=== PATIENT | male | born 1940 | race African-American/Black ===

== ENCOUNTER 2016-07-31 14:09 | Emergency (ER) | payer MEDICARE, OTHER ==
[~2016-07-31] VITALS: Ht 185.4 cm; Wt 90.7 kg
[~2016-07-31 14:09] MED LIST: AMLO5TAB2 PO; ATOR20TA58 PO; BACL10TA PO; CILO100T PO; CLON0.1T PO; CLOP75TA PO; GABA-586 PO; LORA2TAB PO; LOSA1TAB17 PO; LOSA1TAB18 PO; MIRT30TA3 PO; MIRT45TA3 PO; OXYC-250 PO; OXYC-323 PO
--- NOTE | 2016-07-31 15:43 | EKG ---
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
--- NOTE | 2016-07-31 17:04 | RAD ---
INDICATION:bilateral leg pain COMPARISON: None. Spectral Doppler, color and grayscale ultrasound images obtained through the bilateral leg arterial system. FINDINGS: Biphasic waveform is seen in the right common femoral artery and deep femoral artery. Monophasic waveforms are seen within the right superficial femoral, popliteal and calf arteries. Monophasic waveform is seen within the left common femoral, superficial femoral, popliteal and calf arteries. Elevated velocity in the left superficial femoral artery to 400 cm/S. IMPRESSION: Monophasic waveforms are seen throughout a large portion of the bilateral leg arterial vasculature which is suggestive of regions of stenosis with distal regions of altered flow. In addition there is an elevated velocity in the left superficial femoral artery concerning for a site of stenosis.
[2016-07-31 17:10] LABS: BASO # 0.1 x10^3/uL (0.0-0.2); BASO % 1 % (0-3); EOS % 1 % (0-3); HEMOGLOBIN 12.2 g/dL (13.0-17.5); LYMPH # 1.3 x10^3/uL (1.0-4.8); LYMPH % 17 % (24-48); MEAN CORPUSCULAR HEMOGLOBIN 28 pg (25-35); MEAN CORPUSCULAR HGB CONC 32 g/dL (31-37); MEAN CORPUSCULAR VOLUME 88 fL (79-100); MONO % 12 % (0-9); NEUT % 69 % (31-73); PLATELET COUNT 235 x10^3/uL (140-400); RED BLOOD COUNT 4.33 x10^6/uL (4.30-5.70); RED CELL DISTRIBUTION WIDTH 14.6 % (11.5-14.5); WHITE BLOOD COUNT 7.7 x10^3/uL (4.0-11.0)
[2016-07-31 17:20] LABS: CALCIUM 9.8 mg/dL (8.5-10.1); CREATININE 1.1 mg/dL (0.7-1.3); POTASSIUM 4.2 mmol/L (3.5-5.1)
[2016-07-31] MEDS ORDERED: HYDR-2666 PO (17:34)
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
[2016-07-31 18:00] VITALS: BP 191/86
[2016-07-31] MEDS ORDERED: HYDR25TA PO (18:20)
== END 2016-07-31 18:34 | disposition home or self-care (01) ==
LOC: ER 14:09
DX: I73.9 Peripheral vascular disease, unspecified (principal); G89.29 Other chronic pain; M54.9 Dorsalgia, unspecified; F41.9 Anxiety disorder, unspecified; E78.00 Pure hypercholesterolemia, unspecified; I11.9 Hypertensive heart disease without heart failure; G62.9 Polyneuropathy, unspecified; Z90.49 Acquired absence of other specified parts of digestive tract
CPT/HCPCS: 36415; 71010; 80048; 83880; 85027; 93005; 93925; 99285-25

== ENCOUNTER 2016-10-25 18:38 | Emergency (ER) | payer OTHER ==
[~2016-10-25] VITALS: Ht 185.4 cm; Wt 99.8 kg
[~2016-10-25 18:38] MED LIST changes: +HYDR-2666 PO; +HYDR25TA PO
[2016-10-25] MEDS ORDERED: CYCLOBENZAPRINE 10 MG TABLET. PO ONE (19:00)
[2016-10-25] MEDS ORDERED: MORPHINE IR 15 MG TABLET PO ONE (19:00)
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
[2016-10-25 20:09] VITALS: BP 127/61
--- NOTE | 2016-10-26 09:42 | RAD ---
Exam performed: Single view pelvis and 2 views right hip. History: Chronic atraumatic Right hip pain. Date of service: 10/25/16. Comparison: Single view pelvis from 06/11/10. Findings: AP view of the pelvis as well as AP and frog leg lateral view of the right hip are obtained. Mild joint space narrowing involving the right hip joint is seen. Bilateral sacroiliac joints are preserved. There are postoperative changes of open reduction internal fixation about the left hip with intact hardware. Extensive callus formation is seen. There is no acute fracture or dislocation. Nonspecific bowel gas pattern. Mild spondylitic changes. Impression: Early degenerative changes involving the right hip joint. Old healed left intertrochanteric fracture with intact hardware. Spondylotic changes
== END 2016-10-25 20:27 | disposition home or self-care (01) ==
LOC: ER 18:38
DX: M25.551 Pain in right hip (principal); F41.9 Anxiety disorder, unspecified; E78.00 Pure hypercholesterolemia, unspecified; I11.9 Hypertensive heart disease without heart failure; G89.29 Other chronic pain; G62.9 Polyneuropathy, unspecified
CPT/HCPCS: 73502; 99284

== ENCOUNTER 2017-09-02 13:07 | Emergency (ER) | payer OTHER | END 2017-09-02 13:56 | disposition home or self-care (01) | LOC: ER 13:56 | DX: G62.9 Polyneuropathy, unspecified (principal); E78.00 Pure hypercholesterolemia, unspecified; G89.29 Other chronic pain; I11.9 Hypertensive heart disease without heart failure; Z90.49 Acquired absence of other specified parts of digestive tract | CPT/HCPCS: 99284 ==

== ENCOUNTER 2017-10-02 11:30 | Emergency (ER) | payer OTHER ==
[2017-10-02] MEDS: oxyCODONE/APAP 5/325 1 TAB TABLET PO (12:53)
== END 2017-10-02 14:14 | disposition home or self-care (01) ==
LOC: ER 11:30
DX: S70.02XA Contusion of left hip, initial encounter (principal); I10 Essential (primary) hypertension; F41.9 Anxiety disorder, unspecified; G89.29 Other chronic pain; F32.9 Major depressive disorder, single episode, unspecified; Z90.49 Acquired absence of other specified parts of digestive tract; X58.XXXA Exposure to other specified factors, initial encounter; Y93.01 Activity, walking, marching and hiking; Y92.89 Other specified places as the place of occurrence of the external cause; Y99.8 Other external cause status
CPT/HCPCS: 73502; 99284

== ENCOUNTER → 2018-03-21 | Outpatient (CLI) | payer OTHER ==
[2017-10-02 12:08] VITALS: BP 147/70
[~2018-03-21] MED LIST changes: -AMLO5TAB2 PO; +AMLO5TAB7 PO; +CONTRAST GIVEN. MC PRN; -HYDR-2666 PO; +HYDR-2758 PO; +IOHEXOL 300 MG/ML 100ML VIAL. IV ONE; -LOSA1TAB17 PO; -LOSA1TAB18 PO; +LOSA1TAB22 PO; +LOSA1TAB25 PO; -MIRT45TA3 PO; +MIRT45TA58 PO; -OXYC-250 PO; +OXYC-328 PO
--- NOTE | 2018-03-21 15:48 | RAD ---
CT angiography of the abdomen, pelvis, and bilateral lower extremities. 03/21/2018. INDICATION: Peripheral vascular disease. Bilateral lower extremity pain. TECHNIQUE: Multidetector CT imaging of the abdomen, pelvis, and bilateral lower extremities was performed following the administration of IV contrast. A reduced contrast dose was used. 3-D reconstructions of abdominal, pelvic, and lower extremity vasculature were created on an independent workstation and reviewed. COMPARISON STUDY: None available. Discussion: Vascular findings The inferior thoracic aorta demonstrates circumferential atherosclerotic vascular disease without flowing stenosis or aneurysm. The abdominal aorta demonstrates mild circumferential narrowing distally secondary to atherosclerotic vascular calcification. Celiac artery is patent. Superior mesenteric artery is patent. There is moderate narrowing approximately 50 percent involving the proximal right renal artery. Both kidneys demonstrate some atrophic change, right greater than left. The inferior mesenteric artery appears grossly patent. The origin is somewhat obscured by sclerotic vascular calcification. There is short segment approximately 70-80 percent stenosis of the proximal right common iliac artery. A significant component of soft plaque is seen. And the right external iliac artery is patent. There is 50 percent narrowing of the right common femoral artery with dense calcification. There is near occlusion at the origin of the right superficial femoral artery. Profunda artery is patent. There is occlusion of the right SFA in the mid thigh. Some distal reconstitution is present via geniculate collaterals. The popliteal artery demonstrates multiple focal high-grade stenoses above the knee. Below the knee popliteal artery is grossly patent. Anterior tibial artery, tibioperoneal trunk, posterior tibial artery, peroneal artery are patent. Dorsalis pedis artery is patent to the mid foot. Lateral plantar artery is poorly evaluated appears to be grossly patent. Left common iliac artery is patent. Left internal iliac artery demonstrates high-grade densely calcified stenosis proximally. Left external iliac artery is patent. Left common femoral artery is 50 percent narrowed secondary to dense calcific plaque. High-grade stenosis of the proximal left SFA is seen. Multifocal tandem stenoses are seen throughout the left SFA. There is a short segment stent in the mid left SFA. Mild in-stent stenosis is seen proximally. Distal aspect of the stent remains patent. A second stent is seen more distally which is occluded proximally. There is some reconstitution of the [id number]-[id number] popliteal artery. The above-knee popliteal artery is densely calcified demonstrating near occlusive stenoses. The satuv-cye-gafd popliteal artery appears grossly patent. Calcification is seen within the proximal anterior tibial artery. Likely represents mild stenoses. Calcification the peroneal artery is seen probably representing at least moderate stenoses. The posterior tibial artery is patent to the foot. Nonvascular findings: The lung bases demonstrate no acute abnormality. Prior cholecystectomy noted. Liver is unremarkable. Spleen is grossly unremarkable. The adrenal glands are grossly unremarkable. Multilobulated kidneys are noted. Multiple renal cysts are noted bilaterally. Pancreas is atrophic but otherwise grossly unremarkable. Small hiatal hernia appears to be present. There is no bowel obstruction. Evaluation of bowel is limited without oral contrast. Descending and sigmoid colonic diverticulosis is noted. Prior appendectomy. She be present. Diffusion of lumbar vertebral bodies is noted. Degenerative changes of the spine are seen. Postsurgical changes following ORIF of the left hip noted. An acute osseous abnormality is not identified. IMPRESSION: 1. 70-80 %stenosis of the right common iliac artery 2. 50 % stenosis of the right common femoral artery 3. Diffuse vascular disease involving right FSA at SFA as described above including occlusion of the right SFA in the mid thigh. 4. Multiple high-grade stenoses of the right popliteal artery above the knee 5. High-grade stenoses of the bilateral internal iliac arteries 6. Multiple high-grade stenoses involving left superficial femoral artery. In-stent stenosis within the proximal left SFA stent. Occlusion of the more distal left SFA stent. 7. Near occlusive stenosis within the left [id number]-oaf-gtmf popliteal artery 8. Probable moderate stenoses within the left anterior tibial artery and peroneal artery. 9. Chronic abdominal findings as described above CT DOSING PQRS STATEMENT: One or more of the following individualized dose reduction techniques were utilized for this examination: 1. Automated exposure control 2. Adjustment of the mA and/or kV according to patient size 3. Use of iterative reconstruction technique Electronically signed by: Austen Wallace MD (03/21/2018 3:44 PM) [id number]
== END | disposition home or self-care (01) ==
LOC: CT 12:11
PROVIDERS: ATTEND Internal Medicine Cardiovascular Disease
DX: I70.293 Other atherosclerosis of native arteries of extremities, bilateral legs (principal); K57.30 Diverticulosis of large intestine without perforation or abscess without bleeding; N28.1 Cyst of kidney, acquired; I70.0 Atherosclerosis of aorta; Z90.49 Acquired absence of other specified parts of digestive tract
CPT/HCPCS: 73706; Q9967

== ENCOUNTER 2018-05-30 12:55 | Emergency (ER) | payer OTHER ==
[~2018-05-30] VITALS: Ht 185.4 cm; Wt 90.7 kg
[~2018-05-30 12:55] MED LIST changes: +CARI350T14 PO; +CARV3.1210 PO; -CONTRAST GIVEN. MC PRN; -GABA-586 PO; +GABA300C18 PO; -HYDR-2758 PO; +HYDR-2761 PO; -IOHEXOL 300 MG/ML 100ML VIAL. IV ONE; -OXYC-323 PO; -OXYC-328 PO; +OXYC1TAB15 PO; +OXYC1TAB22 PO
[2018-05-30 14:17] VITALS: BP 163/76
[2018-05-30 14:26] LABS: CREATININE ISTAT 1.1 mg/dL (0.5-1.4); HEMOGLOBIN ISTAT 12.2 g/dL (14-18); ION CA ISTAT 1.25 mmol/L (1.13-1.32); POTASSIUM ISTAT 4.1 mmol/L (3.5-5.0)
[2018-05-30 14:28] LABS: BASO # 0.1 x10^3/uL (0.0-0.2); BASO % 1 % (0-3); EOS # 0.2 x10^3/uL (0.0-0.7); EOS % 3 % (0-3); HEMATOCRIT 35.7 % (39.0-53.0); HEMOGLOBIN 12.1 g/dL (13.0-17.5); LYMPH % 18 % (24-48); MEAN CORPUSCULAR HEMOGLOBIN 30 pg (25-35); MEAN CORPUSCULAR HGB CONC 34 g/dL (31-37); MEAN CORPUSCULAR VOLUME 88 fL (79-100); MONO # 0.7 x10^3/uL (0.0-1.1); MONO % 12 % (0-9); NEUT # 3.7 x10^3uL (1.8-7.7); NEUT % 66 % (31-73); PLATELET COUNT 253 x10^3/uL (140-400); RED BLOOD COUNT 4.07 x10^6/uL (4.30-5.70); RED CELL DISTRIBUTION WIDTH 14.7 % (11.5-14.5); WHITE BLOOD COUNT 5.6 x10^3/uL (4.0-11.0)
[2018-05-30] MEDS ORDERED: HYDROcodone/APAP 5/325MG 1 TAB TABLET PO ONE (14:30)
[2018-05-30] MEDS ORDERED: IOHEXOL 300 MG/ML 100ML VIAL. IV ONE (14:30)
[2018-05-30 14:38] LABS: PROTHROMBIN TIME PATIENT 12.6 SEC (11.7-14.0)
[2018-05-30 14:39] LABS: CALCIUM 9.5 mg/dL (8.5-10.1); CREATININE 1.2 mg/dL (0.7-1.3); GFR 71.2; POTASSIUM 4.1 mmol/L (3.5-5.1)
[2018-05-30] MEDS ORDERED: HYDR-3164 PO (14:40)
[2018-05-30 14:44] LABS: ALBUMIN 3.5 g/dL (3.4-5.0); ALBUMIN/GLOBULIN RATIO 0.7 (1.0-1.7); TOTAL BILIRUBIN 0.3 mg/dL (0.2-1.0); TOTAL PROTEIN 8.4 g/dL (6.4-8.2)
--- NOTE | 2018-05-30 15:26 | PHYS DOC ---
Past Medical History Past Medical History: Anxiety, Depression, Hypertension Additional Past Medical Histor: chronic back pain, NEUROPATHY Past Surgical History: Cholecystectomy, Other Additional Past Surgical Histo: STENT PLACED IN LEG, BACK SX, LEFT HIP SX Alcohol Use: None Drug Use: None Adult General Chief Complaint Chief Complaint: LOWER EXT PAIN HPI HPI Patient is a 77 year old male who presents with chief complaint of right buttock pain apparently he has an abnormal height bed he has been having some discomfort when he gets in and out of bed he has been using a water pill and urinating more and so he is getting up and out of bed to the commode more he thinks he pinched something in his buttock. He says his lower legs feel fine he is not having any of the symptoms that he was having just prior to his lower extremity angiogram. He says that he has baseline numbness in both legs that is actually much better his feet don't hurt him really at this time. He is taking oral oral pain medication at home. Review of Systems Review of Systems Constitutional: Denies fever or chills [] HENT: Denies nasal congestion or sore throat [] Cardiovascular: No additional information not addressed in HPI [] GI: Denies abdominal pain, nausea, vomiting, bloody stools or diarrhea [] : Denies dysuria or hematuria [] Neurologic: Denies headache, All other systems were reviewed and found to be within normal limits, except as documented in this note. Current Medications Current Medications Current Medications Medications (Trade) Dose Ordered Sig/Kimberly Start Time Stop Time Status Last Admin Dose Admin Acetaminophen/ Hydrocodone Bitart (Lortab 5/325) 2 tab 1X ONCE 05/30/18 14:30 05/30/18 14:31 DC Iohexol (Omnipaque 300 Mg/ml) 95 ml 1X ONCE 05/30/18 14:30 05/30/18 14:34 DC Allergies Allergies Allergies Coded Allergies Type Severity Reaction Last Updated Verified No Known Drug Allergies 01/14/15 No Physical Exam Physical Exam Constitutional: Well developed, well nourished, no acute distress, non-toxic appearance. [] HENT: Normocephalic, atraumatic, bilateral external ears normal, oropharynx moist, no oral exudates, nose normal. [] Eyes: PERRLA, EOMI, conjunctiva normal, no discharge. [] Neck: Normal range of motion, no tenderness, supple, no stridor. [] Cardiovascular:Heart rate regular rhythm, no murmur [] Lungs & Thorax: Bilateral breath sounds clear to auscultation [] Abdomen: Bowel sounds normal, soft, no tenderness, no masses, no pulsatile masses. [] Skin: Warm, dry, no erythema, no rash. [] Back: mild right buttock ttp noted. no rash. femoral pulse intact[] Extremities patient has biphasic posterior tibial pulses dopplerable bilaterally he has monophasic dorsalis pedis pulses bilaterally as well. He has slightly decreased sensation to light touch brisk capillary refill is intact his calves are nontender he has mild tenderness over his right buttock otherwise strength is intact. Neurologic: Alert and oriented X 3, normal motor function, normal sensory function, no focal deficits noted. [] Psychologic: Affect normal, judgement normal, mood normal. [] Current Patient Data Vital Signs Vital Signs Date Time Temp Pulse Resp B/P (MAP) Pulse Ox O2 Delivery O2 Flow Rate FiO2 05/30/18 14:17 86 20 163/76 (105) 95 Room Air 05/30/18 13:11 97.7 97.7 Lab Values Laboratory Tests Test 05/30/18 14:20 05/30/18 14:21 White Blood Count 5.6 x10^3/uL (4.0-11.0) Red Blood Count 4.07 x10^6/uL (4.30-5.70) L Hemoglobin 12.1 g/dL (13.0-17.5) L Hematocrit 35.7 % (39.0-53.0) L Mean Corpuscular Volume 88 fL (79-100) Mean Corpuscular Hemoglobin 30 pg (25-35) Mean Corpuscular Hemoglobin Concent 34 g/dL (31-37) Red Cell Distribution Width 14.7 % (11.5-14.5) H Platelet Count 253 x10^3/uL (140-400) Neutrophils (%) (Auto) 66 % (31-73) Lymphocytes (%) (Auto) 18 % (24-48) L Monocytes (%) (Auto) 12 % (0-9) H Eosinophils (%) (Auto) 3 % (0-3) Basophils (%) (Auto) 1 % (0-3) Neutrophils # (Auto) 3.7 x10^3uL (1.8-7.7) Lymphocytes # (Auto) 1.0 x10^3/uL (1.0-4.8) Monocytes # (Auto) 0.7 x10^3/uL (0.0-1.1) Eosinophils # (Auto) 0.2 x10^3/uL (0.0-0.7) Basophils # (Auto) 0.1 x10^3/uL (0.0-0.2) Prothrombin Time 12.6 SEC (11.7-14.0) Prothrombin Time INR 1.0 (0.8-1.1) Sodium Level 139 mmol/L (136-145) Potassium Level 4.1 mmol/L (3.5-5.1) Chloride Level 104 mmol/L (98-107) Carbon Dioxide Level 27 mmol/L (21-32) Anion Gap 8 (6-14) 17 mmol/L (6-14) H Blood Urea Nitrogen 32 mg/dL (8-26) H Creatinine 1.2 mg/dL (0.7-1.3) Estimated GFR (Cockcroft-Gault) 71.2 BUN/Creatinine Ratio 27 (6-20) H Glucose Level 120 mg/dL (70-99) H 117 mg/dL (70-99) H Calcium Level 9.5 mg/dL (8.5-10.1) Total Bilirubin 0.3 mg/dL (0.2-1.0) Aspartate Amino Transferase (AST) 27 U/L (15-37) Alanine Aminotransferase (ALT) 27 U/L (16-63) Alkaline Phosphatase 101 U/L (46-116) Total Protein 8.4 g/dL (6.4-8.2) H Albumin 3.5 g/dL (3.4-5.0) Albumin/Globulin Ratio 0.7 (1.0-1.7) L POC Hemoglobin 12.2 g/dL (14-18) L POC Hematocrit 36 % (37-52) L POC Sodium 141 mmol/L (135-145) POC Potassium 4.1 mmol/L (3.5-5.0) POC Chloride 105 mmol/L (98-110) POC Total CO2 25 mmol/L (23-32) POC Blood Urea Nitrogen 30 mg/dL (8-26) H POC Creatinine 1.1 mg/dL (0.5-1.4) POC Ionized Calcium (Buck) 1.25 mmol/L (1.13-1.32) Laboratory Tests 05/30/18 14:20 Laboratory Tests 05/30/18 14:20 05/30/18 14:21 EKG EKG [] Radiology/Procedures Radiology/Procedures [] Course & Med Decision Making Course & Med Decision Making Pertinent Labs and Imaging studies reviewed. (See chart for details) []77-year-old male with history of complex peripheral vascular disease status post a stent placement to the common iliac on the right as well as angioplasty to a previous stent of the superficial femoral artery on the left a few weeks back who is now presenting with right buttock pain it is reproducible on examination strongly suggestive of sciatica. I did speak with Dr. pichardo who initially over the telephone and thought that a CT angiogram would be reasonable. However he then came to see the patient which is very very much appreciated he evaluated the patient in detail he actually feels like I initially felt that this was very much a sciatic reproducible muscular type of pain we both decided to cancel the CT angiogram I think that is very reasonable. Patient was recommended to continue his oral narcotic pain medication rest ice gradual return to activity and follow-up routinely for his routine care. Patient was advised to follow-up for his blood pressure within 1 month he notes understanding. Anthony Disclaimer Anthony Disclaimer This electronic medical record was generated, in whole or in part, using a voice recognition dictation system. Departure Departure Impression: Primary Impression: Sciatica Additional Impression: Elevated blood pressure reading Disposition: HOME, SELF-CARE Condition: STABLE Patient Instructions: Sciatica, [id number] Scripts Hydrocodone/Apap 5-325 (NORCO 5-325 TABLET) 1 Each Tablet 1-2 EACH PO PRN Q6HRS PRN for PAIN, #15 as needed for pain Prov: FER TRUONG MD 05/30/18 Problem Qualifiers FER TRUONG MD May 30, 2018 15:26
== END 2018-05-30 14:51 | disposition home or self-care (01) ==
LOC: ER 12:55
DX: M54.41 Lumbago with sciatica, right side (principal); I10 Essential (primary) hypertension; R20.0 Anesthesia of skin; G89.29 Other chronic pain; Z90.49 Acquired absence of other specified parts of digestive tract; Z98.890 Other specified postprocedural states
CPT/HCPCS: 36415; 80047; 80053; 85025; 85610; 99284

== ENCOUNTER 2019-07-25 16:52 | Emergency (ER) | payer MEDICARE, OTHER ==
[~2019-07-25] VITALS: Ht 185.4 cm; Wt 100.0 kg
[~2019-07-25 16:52] MED LIST changes: +AMLO5TAB10 PO; -AMLO5TAB7 PO; +HYDR-3164 PO
--- NOTE | 2019-07-25 18:23 | PHYS DOC ---
Past Medical History Past Medical History: Anxiety, Depression, Hypertension Additional Past Medical Histor: chronic back pain, NEUROPATHY Past Surgical History: Cholecystectomy, Other Additional Past Surgical Histo: STENT PLACED IN LEG, BACK SX, LEFT HIP SX Smoking Status: Former Smoker Alcohol Use: None Drug Use: None Adult General Chief Complaint Chief Complaint: DIZZY/LIGHT HEADED [facility] HPI 79-year-old male with underlying history of hypertension, back pain, muscle spasm presents to the emergency Department complaints of dizziness. Patient was prescribed tizanidine 4 mg 1 by mouth twice a day, he picked up the prescription today ingested 1 tablet her approximate 2 PM. Patient states around 3 he became dizzy and lightheaded. Patient denies any chest pain, shortness breath, nausea, vomiting. Nothing makes his symptoms worse, nothing makes his symptoms better. Review of Systems Review of Systems Constitutional: Denies fever or chills [] Respiratory: Denies cough or shortness of breath [] Cardiovascular: No additional information not addressed in HPI [] GI: Denies abdominal pain, nausea, vomiting, bloody stools or diarrhea [] Musculoskeletal: back pain Neurologic: Denies headache, focal weakness or sensory changes, + dizziness [] All other systems were reviewed and found to be within normal limits, except as documented in this note. Current Medications Current Medications Current Medications Medications (Trade) Dose Ordered Sig/Kimberly Start Time Stop Time Status Last Admin Dose Admin Sodium Chloride 1,000 ml @ 1,000 mls/hr 1X ONCE 07/25/19 18:30 07/25/19 19:29 07/25/19 18:43 1,000 MLS/HR Allergies Allergies Allergies Coded Allergies Type Severity Reaction Last Updated Verified No Known Drug Allergies 01/14/15 No Physical Exam Physical Exam Constitutional: Well developed, well nourished, no acute distress, non-toxic appearance. [] HENT: Normocephalic, atraumatic, bilateral external ears normal, oropharynx moist, no oral exudates, nose normal. [] Eyes: PERRLA, EOMI, conjunctiva normal, no discharge. [] Cardiovascular:Heart rate regular rhythm, no murmur [] Lungs & Thorax: Bilateral breath sounds clear to auscultation [] Abdomen: Bowel sounds normal, soft, no tenderness, no masses, no pulsatile masses. [] Skin: Warm, dry, no erythema, no rash. [] Back: No tenderness, no CVA tenderness. [] Extremities: No tenderness, no edema. [] Neurologic: Alert and oriented X 3, no focal deficits noted. [] Psychologic: Affect normal, judgement normal, mood normal. [] Current Patient Data Vital Signs Vital Signs Date Time Temp Pulse Resp B/P (MAP) Pulse Ox O2 Delivery O2 Flow Rate FiO2 07/25/19 18:23 97.5 63 20 163/70 (101) 97 Room Air 97.5 Lab Values Laboratory Tests Test 07/25/19 18:17 White Blood Count 6.1 x10^3/uL (4.0-11.0) Red Blood Count 4.11 x10^6/uL (4.30-5.70) L Hemoglobin 11.7 g/dL (13.0-17.5) L Hematocrit 36.1 % (39.0-53.0) L Mean Corpuscular Volume 88 fL (79-100) Mean Corpuscular Hemoglobin 29 pg (25-35) Mean Corpuscular Hemoglobin Concent 33 g/dL (31-37) Red Cell Distribution Width 14.3 % (11.5-14.5) Platelet Count 232 x10^3/uL (140-400) Neutrophils (%) (Auto) 66 % (31-73) Lymphocytes (%) (Auto) 19 % (24-48) L Monocytes (%) (Auto) 12 % (0-9) H Eosinophils (%) (Auto) 3 % (0-3) Basophils (%) (Auto) 1 % (0-3) Neutrophils # (Auto) 4.0 x10^3/uL (1.8-7.7) Lymphocytes # (Auto) 1.1 x10^3/uL (1.0-4.8) Monocytes # (Auto) 0.7 x10^3/uL (0.0-1.1) Eosinophils # (Auto) 0.2 x10^3/uL (0.0-0.7) Basophils # (Auto) 0.0 x10^3/uL (0.0-0.2) Sodium Level 139 mmol/L (136-145) Potassium Level 4.1 mmol/L (3.5-5.1) Chloride Level 103 mmol/L (98-107) Carbon Dioxide Level 24 mmol/L (21-32) Anion Gap 12 (6-14) Blood Urea Nitrogen 20 mg/dL (8-26) Creatinine 1.5 mg/dL (0.7-1.3) H Estimated GFR (Cockcroft-Gault) 54.8 BUN/Creatinine Ratio 13 (6-20) Glucose Level 88 mg/dL (70-99) Calcium Level 8.3 mg/dL (8.5-10.1) L Total Bilirubin 0.2 mg/dL (0.2-1.0) Aspartate Amino Transferase (AST) 24 U/L (15-37) Alanine Aminotransferase (ALT) 24 U/L (16-63) Alkaline Phosphatase 107 U/L (46-116) Total Protein 7.3 g/dL (6.4-8.2) Albumin 3.1 g/dL (3.4-5.0) L Albumin/Globulin Ratio 0.7 (1.0-1.7) L Laboratory Tests 07/25/19 18:17 Laboratory Tests 07/25/19 18:17 EKG EKG EKG reviewed, interpretation time 1810, heart rate 59, left axis deviation, no STEMI[] Radiology/Procedures Radiology/Procedures [] Course & Med Decision Making Course & Med Decision Making Pertinent Labs and Imaging studies reviewed. (See chart for details) []79-year-old male with underlying history of hypertension, back pain, muscle spasm presents to the emergency Department complaints of dizziness. Patient was prescribed tizanidine 4 mg 1 by mouth twice a day, he picked up the prescription today ingested 1 tablet her approximate 2 PM. Patient states around 3 he became dizzy and lightheaded. Patient denies any chest pain, shortness breath, nausea, vomiting. Nothing makes his symptoms worse, nothing makes his symptoms better. Labs reviewed. Symptoms likely secondary to tizanidine, medication starts to work within one to 2 hours can last up to 6-8 hours Discussed results with patient/family Recommend taking the medication at night, would not take during the day given his symptoms- would be cautious getting up at night Return precautions provided Recommend dc home and follow up as outpatient with PCP No CT performed given the onset of symptoms 1 hour after ingestion which is consistent with medication side effect Dragon Disclaimer Dragon Disclaimer This electronic medical record was generated, in whole or in part, using a voice recognition dictation system. Departure Departure Impression: Primary Impression: Medication side effect Additional Impression: Dizziness Disposition: 01 HOME, SELF-CARE Condition: IMPROVED Referrals: MELVIN DEL VALLE MD (PCP) Patient Instructions: Dizziness, [id number] Additional Instructions: Symptoms likely secondary to tizanidine, medication starts to work within one to 2 hours can last up to 6-8 hours Recommend taking the medication at night, would not take during the day given his symptoms- would be cautious getting up at night Recommend follow up with PCP 3 - 5 days Return to the ER with worsening symptoms, intractable pain, fever, altered mental status Problem Qualifiers CONNOR TOLEDO MD Jul 25, 2019 18:23
[2019-07-25] MEDS ORDERED: IV NORMAL SALINE 1000ML BAG 1,000 ML IV ONE (18:30)
[2019-07-25 18:49] LABS: BASO % 1 % (0-3); EOS # 0.2 x10^3/uL (0.0-0.7); EOS % 3 % (0-3); HEMATOCRIT 36.1 % (39.0-53.0); HEMOGLOBIN 11.7 g/dL (13.0-17.5); LYMPH # 1.1 x10^3/uL (1.0-4.8); LYMPH % 19 % (24-48); MEAN CORPUSCULAR HEMOGLOBIN 29 pg (25-35); MEAN CORPUSCULAR HGB CONC 33 g/dL (31-37); MEAN CORPUSCULAR VOLUME 88 fL (79-100); MONO # 0.7 x10^3/uL (0.0-1.1); MONO % 12 % (0-9); NEUT % 66 % (31-73); PLATELET COUNT 232 x10^3/uL (140-400); RED BLOOD COUNT 4.11 x10^6/uL (4.30-5.70); RED CELL DISTRIBUTION WIDTH 14.3 % (11.5-14.5); WHITE BLOOD COUNT 6.1 x10^3/uL (4.0-11.0)
[2019-07-25 18:59] LABS: CALCIUM 8.3 mg/dL (8.5-10.1); CREATININE 1.5 mg/dL (0.7-1.3); GFR 54.8; POTASSIUM 4.1 mmol/L (3.5-5.1)
[2019-07-25 19:04] LABS: ALBUMIN 3.1 g/dL (3.4-5.0); ALBUMIN/GLOBULIN RATIO 0.7 (1.0-1.7); TOTAL BILIRUBIN 0.2 mg/dL (0.2-1.0); TOTAL PROTEIN 7.3 g/dL (6.4-8.2)
[2019-07-25 19:44] VITALS: BP 158/84
--- NOTE | 2019-07-28 07:03 | EKG ---
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
== END 2019-07-25 19:45 | disposition home or self-care (01) ==
LOC: ER 16:52
DX: R42 Dizziness and giddiness (principal); T50.905A Adverse effect of unspecified drugs, medicaments and biological substances, initial encounter; F41.9 Anxiety disorder, unspecified; F32.9 Major depressive disorder, single episode, unspecified; I10 Essential (primary) hypertension; G89.29 Other chronic pain; G62.9 Polyneuropathy, unspecified; F17.200 Nicotine dependence, unspecified, uncomplicated; Z98.890 Other specified postprocedural states; Y92.89 Other specified places as the place of occurrence of the external cause
CPT/HCPCS: 36415; 80053; 85025; 93005; 96360; 99285; J7030

== ENCOUNTER 2020-01-11 15:16 | Emergency (ER) | payer MEDICARE ==
[~2020-01-11] VITALS: Ht 182.9 cm; Wt 90.9 kg
[2020-01-11 15:45] VITALS: BP 185/98
--- NOTE | 2020-01-11 16:33 | PHYS DOC ---
Past Medical History Past Medical History: Anxiety, Depression, Hypertension Additional Past Medical Histor: chronic back pain, NEUROPATHY Past Surgical History: Cholecystectomy, Other Additional Past Surgical Histo: STENT PLACED IN LEG, BACK SX, LEFT HIP SX Smoking Status: Former Smoker Alcohol Use: None Drug Use: None General Adult EDM: Chief Complaint: OTHER COMPLAINTS HPI: HPI: Patient is a 79 year old male who presents with chief complaint of loneliness. Patient states that he lost his several years ago, has not in good relation ship with other parts of his family, states that he has lost many of his friends to because of age, states that he feels lonely and has a hard time sleeping at night. Patient denies fever or chills, or visual changes, any nasal congestion, cough, shortness of breath. Patient denies chest pain or peripheral swelling. Patient denies any abdominal pain nausea vomiting diarrhea. Patient denies any problems urinating, any back pains or pain in his joints above and beyond his chronic illnesses being treated by his family physician. Patient denies any skin rashes, headaches, focal weaknesses or sensory changes. Patient denies any swollen glands. Patient does not deny feelings of depression, although he states that he is just lonely, denies anxiety, denies suicidal or homicidal ideation. Patient denies any COVID-19 concerns. Review of Systems: Review of Systems: Constitutional: Denies fever or chills. Eyes: Denies change in visual acuity. HENT: Denies nasal congestion or sore throat. Respiratory: Denies cough or shortness of breath. Cardiovascular: Denies chest pain or edema. GI: Denies abdominal pain, nausea, vomiting, bloody stools or diarrhea. : Denies dysuria. Musculoskeletal: Denies back pain or joint pain. Integument: Denies rash. Neurologic: Denies headache, focal weakness or sensory changes. Lymphatic: Denies swollen glands. Psychiatric: Denies depression or anxiety. Denies homicidal or suicidal ideation. Patient states he is lonely although does not associate this loneliness with depression. Heart Score: Risk Factors: Risk Factors: DM, Current or recent (<one month) smoker, HTN, HLP, family history of CAD, obesity. Risk Scores: Score 0 - 3: 2.5% MACE over next 6 weeks - Discharge Home Score 4 - 6: 20.3% MACE over next 6 weeks - Admit for Clinical Observation Score 7 - 10: 72.7% MACE over next 6 weeks - Early Invasive Strategies Allergies: Allergies: Allergies Coded Allergies Type Severity Reaction Last Updated Verified No Known Drug Allergies 01/14/15 No Physical Exam: PE: Constitutional: Well developed, well nourished, no acute distress, non-toxic appearance. HENT: Normocephalic, atraumatic, bilateral external ears normal, oropharynx moist, no oral exudates, nose normal. Eyes: PERRLA, EOMI, conjunctiva normal, no discharge. Neck: Normal range of motion, no tenderness, supple, no stridor. Cardiovascular:Heart rate regular rhythm, no murmur Lungs & Thorax: Bilateral breath sounds clear to auscultation Abdomen: Bowel sounds normal, soft, no tenderness, no masses, no pulsatile m asses. Skin: Warm, dry, no erythema, no rash. Back: No tenderness, no CVA tenderness. Extremities: No tenderness, no cyanosis, no clubbing, ROM intact, no edema. Neurologic: Alert and oriented X 3, normal motor function, normal sensory function, no focal deficits noted. Psychologic: Affect normal, judgement normal, mood normal. Current Patient Data: Vital Signs: Vital Signs Date Time Temp Pulse Resp B/P (MAP) Pulse Ox O2 Delivery O2 Flow Rate FiO2 01/11/20 15:45 98.4 87 18 185/98 (127) 96 Room Air 98.4 EKG: EKG: [] Radiology/Procedures: Radiology/Procedures: [] Course & Med Decision Making: Course & Med Decision Making Pertinent Labs and Imaging studies reviewed. (See chart for details) 79-year-old male presents to the emergency department with complaints of loneliness. Patient states he has lost his and since then he has lost his relationship with his other family members. Patient states that he lives by himself, owns no pets. Patient states that most of his friends have from old age and other health problems. Patient states he is not depressed, but just feels very lonely. Patient does not complain of any physical complaints that are beyond what he is being treated for by his primary care physician. Patient does have a female friend that was sitting in the room during examination. Patient states that when they are together everything is fine he has no prob lems, but when she goes home or has to take care of her daughter, the symptoms of loneliness return. Discussed with patient that he needs to see his primary care physician soon to manage his depression medications. Patient was agreeable to this plan. Patient was not homicidal or suicidal. Patient was given specific instructions to follow-up with his doctor soon, no prescriptions for home were given. Patient was given return to ER precautions and concerns. Patient had no further questions or concerns and was discharged home. Dragon Disclaimer: Dragon Disclaimer: This electronic medical record was generated, in whole or in part, using a voice recognition dictation system. Departure Departure Impression: Primary Impression: Loneliness Disposition: HOME, SELF-CARE Condition: GOOD Referrals: MELVIN DEL VALLE MD (PCP) Additional Instructions: Please follow-up with your Dr. Mendez this week. Return to the emergency department for any worsening symptoms or concerns. Justicifation of Admission Dx: Justifications for Admission: Justification of Admission Dx: N/A TANO MCCARTHY APRN Jan 11, 2020 16:33
== END 2020-01-11 16:53 | disposition home or self-care (01) ==
LOC: ER 15:16
DX: R45.89 Other symptoms and signs involving emotional state (principal); F41.9 Anxiety disorder, unspecified; F32.9 Major depressive disorder, single episode, unspecified; I10 Essential (primary) hypertension; G89.29 Other chronic pain; G62.9 Polyneuropathy, unspecified; Z87.891 Personal history of nicotine dependence; Z90.49 Acquired absence of other specified parts of digestive tract; Z98.890 Other specified postprocedural states
CPT/HCPCS: 99284

== ENCOUNTER 2020-04-08 13:30 | Emergency (ER) | payer MEDICARE ==
[~2020-04-08] VITALS: Ht 185.4 cm; Wt 100.0 kg
[~2020-04-08 13:30] MED LIST changes: +AMLO-186 PO; -AMLO5TAB10 PO
--- NOTE | 2020-04-08 16:26 | PHYS DOC ---
Past Medical History Past Medical History: Anxiety, Depression, Hypertension Additional Past Medical Histor: chronic back pain, NEUROPATHY Past Surgical History: No Surgical History, Cholecystectomy, Other Additional Past Surgical Histo: STENT PLACED IN LEG, BACK SX, LEFT HIP SX Smoking Status: Never Smoker Alcohol Use: None Drug Use: None General Adult EDM: Chief Complaint: MUSCLE SPASM/CRAMP HPI: HPI: 71-year-old male presenting with leg cramps in his calves for the past week or 2. He is on a medication to help the fluid in his legs come down likely Lasix. He was post to get potassium but reports that he was unable to get the medication for potassium repletion. The cramping comes and goes. Is worse when he walks and improves when he rests. He denies any numbness weakness or tingling of his legs. Review of systems is negative for chest pain shortness of breath vomiting fevers chills or any other complaints. All other review of systems negative. ED course: 79-year-old male presenting to the emergency department today with muscle cramps in his legs. Patient blood pressure was significantly elevated on initial exam. His blood pressure came down to the 170s without any intervention. Blood work unremarkable. Potassium within normal limits. We will give the patient a muscle relaxant and a medication for anxiety which the patient requested. He can follow-up with his doctor in 1 to 2 days. Heart Score: Risk Factors: Risk Factors: DM, Current or recent (<one month) smoker, HTN, HLP, family history of CAD, obesity. Risk Scores: Score 0 - 3: 2.5% MACE over next 6 weeks - Discharge Home Score 4 - 6: 20.3% MACE over next 6 weeks - Admit for Clinical Observation Score 7 - 10: 72.7% MACE over next 6 weeks - Early Invasive Strategies Allergies: Allergies: Allergies Coded Allergies Type Severity Reaction Last Updated Verified No Known Drug Allergies 01/14/15 No Physical Exam: PE: Constitutional: Well developed, well nourished, no acute distress, non-toxic appearance. [] HENT: Normocephalic, atraumatic, bilateral external ears normal, oropharynx moist, no oral exudates, nose normal. [] Eyes: PERRLA, EOMI, conjunctiva normal, no discharge. [] Neck: Normal range of motion, no tenderness, supple, no stridor. [] Cardiovascular:Heart rate regular rhythm, no murmur [] Lungs & Thorax: Bilateral breath sounds clear to auscultation [] Abdomen: Bowel sounds normal, soft, no tenderness, no masses, no pulsatile masses. [] Skin: Warm, dry, no erythema, no rash. [] Back: No tenderness, no CVA tenderness. [] Extremities: No tenderness, no cyanosis, no clubbing, ROM intact, no edema. [] Neurologic: Alert and oriented X 3, normal motor function, normal sensory function, no focal deficits noted. [] Psychologic: Affect normal, judgement normal, mood normal. [] Current Patient Data: Vital Signs: Vital Signs Date Time Temp Pulse Resp B/P (MAP) Pulse Ox O2 Delivery O2 Flow Rate FiO2 04/08/20 14:58 98.1 78 20 209/106 (140) 98 Room Air 98.1 EKG: EKG: [] Radiology/Procedures: Radiology/Procedures: [] Course & Med Decision Making: Course & Med Decision Making Pertinent Labs and Imaging studies reviewed. (See chart for details) [] Dragon Disclaimer: Dragon Disclaimer: This electronic medical record was generated, in whole or in part, using a voice recognition dictation system. Departure Departure Impression: Primary Impression: Leg cramps Disposition: 01 DC HOME SELF CARE/HOMELESS Condition: STABLE Referrals: UNKNOWN PCP NAME (PCP) Patient Instructions: Muscle Cramps, [id number] Additional Instructions: Follow-up with your primary physician in 1 to 2 days. Return to the emergency department if you have any new or concerning findings. Scripts Alprazolam (ALPRAZOLAM) 0.5 Mg Tablet 1 TAB PO PRN BID PRN for ANXIETY / AGITATION, #10 TAB 0 Refills Prov: SKY GALLARDO MD 04/08/20 Cyclobenzaprine Hcl (CYCLOBENZAPRINE HCL) 5 Mg Tablet 1 TAB PO PRN BID PRN for PAIN, #10 TAB Prov: SKY GALLARDO MD 04/08/20 SKY GALLARDO MD Apr 08, 2020 16:26
[2020-04-08 16:31] LABS: BASO % 1 % (0-3); EOS # 0.3 x10^3/uL (0.0-0.7); EOS % 5 % (0-3); HEMATOCRIT 41.1 % (39.0-53.0); HEMOGLOBIN 13.6 g/dL (13.0-17.5); LYMPH # 1.4 x10^3/uL (1.0-4.8); LYMPH % 21 % (24-48); MEAN CORPUSCULAR HEMOGLOBIN 29 pg (25-35); MEAN CORPUSCULAR HGB CONC 33 g/dL (31-37); MEAN CORPUSCULAR VOLUME 88 fL (79-100); MONO # 0.7 x10^3/uL (0.0-1.1); MONO % 11 % (0-9); NEUT # 4.3 x10^3/uL (1.8-7.7); NEUT % 63 % (31-73); PLATELET COUNT 205 x10^3/uL (140-400); RED BLOOD COUNT 4.68 x10^6/uL (4.30-5.70); RED CELL DISTRIBUTION WIDTH 14.1 % (11.5-14.5); WHITE BLOOD COUNT 6.8 x10^3/uL (4.0-11.0)
[2020-04-08 16:44] LABS: CALCIUM 9.4 mg/dL (8.5-10.1); CREATININE 1.1 mg/dL (0.7-1.3); GFR 78.3; POTASSIUM 4.1 mmol/L (3.5-5.1)
[2020-04-08 16:50] LABS: ALBUMIN 3.6 g/dL (3.4-5.0); ALBUMIN/GLOBULIN RATIO 0.8 (1.0-1.7); TOTAL BILIRUBIN 0.4 mg/dL (0.2-1.0); TOTAL PROTEIN 8.2 g/dL (6.4-8.2)
[2020-04-08] MEDS ORDERED: CYCL5TAB PO (16:57)
[2020-04-08] MEDS ORDERED: ALPR0.5T6 PO (16:57)
[2020-04-08 17:37] VITALS: BP 182/89
== END 2020-04-08 17:40 | disposition home or self-care (01) ==
LOC: ER 13:30
DX: R25.2 Cramp and spasm (principal); F41.9 Anxiety disorder, unspecified; F32.9 Major depressive disorder, single episode, unspecified; I10 Essential (primary) hypertension; G89.29 Other chronic pain; Z90.49 Acquired absence of other specified parts of digestive tract; Z98.890 Other specified postprocedural states
CPT/HCPCS: 36415; 80053; 85025; 99283

== ENCOUNTER 2020-05-30 16:31 | Emergency (ER) | payer MEDICARE ==
[~2020-05-30] VITALS: Ht 185.4 cm; Wt 99.1 kg
[~2020-05-30 16:31] MED LIST changes: +ALPR0.5T6 PO; +CYCL5TAB PO
[2020-05-30 17:11] VITALS: BP 160/104
--- NOTE | 2020-05-30 18:21 | RAD ---
Exam: Left shoulder 3 views. Left humerus 2 views INDICATION: Fall, pain TECHNIQUE: Frontal and lateral views of the left humerus. Frontal view of the left shoulder with inte rnal and external rotation and transscapular Y views. Comparisons: None FINDINGS: Shoulder: Diffuse osteopenia. Bone mineralization is normal. No acute or healed fractures. Joint spaces are wel l-maintained. Humerus: Bone mineralization is normal. No acute or healed fractures. Soft tissues are unremarkable. Joint spa fabio are well-maintained. IMPRESSION: No acute osseous abnormality of the left shoulder or humerus. Electronically signed by: Ford Catalan MD (05/30/2020 6:18 PM) MAKAYLA
--- NOTE | 2020-05-30 18:46 | PHYS DOC ---
Past Medical History Past Medical History: Anxiety, Depression, Hypertension Additional Past Medical Histor: chronic back pain, NEUROPATHY Past Surgical History: No Surgical History, Cholecystectomy, Other Additional Past Surgical Histo: STENT PLACED IN LEG, BACK SX, LEFT HIP SX Smoking Status: Never Smoker Alcohol Use: None Drug Use: None General Adult EDM: Chief Complaint: MECHANICAL FALL HPI: HPI: Patient is a 79 year old male with history of hypertension, depression, who presents to the ED today complaining of 7 out of 10 left shoulder pain that began today after he fell. Patient states he tripped on his own feet fell hitting his left shoulder on a table. Denies any loss of consciousness. Denies any neck pain or head pain. Denies hitting his head on the ground. Describes the pain as throbbing and intermittent worse on range of motion. Review of Systems: Review of Systems: Constitutional: Denies fever or chills. [] Musculoskeletal: Reports left shoulder pain Integument: Denies rash. [] Neurologic: Denies headache, focal weakness or sensory changes. [] Psychiatric: Denies depression or anxiety. [] Heart Score: Risk Factors: Risk Factors: DM, Current or recent (<one month) smoker, HTN, HLP, family history of CAD, obesity. Risk Scores: Score 0 - 3: 2.5% MACE over next 6 weeks - Discharge Home Score 4 - 6: 20.3% MACE over next 6 weeks - Admit for Clinical Observation Score 7 - 10: 72.7% MACE over next 6 weeks - Early Invasive Strategies Allergies: Allergies: Allergies Coded Allergies Type Severity Reaction Last Updated Verified No Known Drug Allergies 01/14/15 No Physical Exam: PE: Constitutional: Well developed, well nourished, no acute distress, non-toxic appearance. [] Skin: Warm, dry, no erythema, no rash. [] Back: No tenderness, no CVA tenderness. [] Extremities: Left shoulder with no obvious deformity, tenderness on palpation of the left ACM joint region. Full passive range of motion to the left shoulder. Full passive range of motion to the left upper extremity. Full range of motion to the left fingers. Adequate radial, medial, ulnar sensation to the left upper extremity. +2 left radial pulse. Cap refill less than 2 seconds in left fingers. Neurologic: Alert and oriented X 3, normal motor function, normal sensory function, no focal deficits noted. [] Psychologic: Affect normal, judgement normal, mood normal. [] Current Patient Data: Vital Signs: Vital Signs Date Time Temp Pulse Resp B/P (MAP) Pulse Ox O2 Delivery O2 Flow Rate FiO2 05/30/20 17:11 98.3 89 18 160/104 (122) 98 98.3 EKG: EKG: [] Radiology/Procedures: Radiology/Procedures: []PROCEDURE: SHOULDER 2+V LEFT Exam: Left shoulder 3 views. Left humerus 2 views INDICATION: Fall, pain TECHNIQUE: Frontal and lateral views of the left humerus. Frontal view of the left shoulder with internal and external rotation and transscapular Y views. Comparisons: None FINDINGS: Shoulder: Diffuse osteopenia. Bone mineralization is normal. No acute or healed fractures. Joint spaces are well-maintained. Humerus: Bone mineralization is normal. No acute or healed fractures. Soft tissues are unremarkable. Joint spaces are well-maintained. IMPRESSION: No acute osseous abnormality of the left shoulder or humerus. Electronically signed by: Katarina Mcintyre MD (05/30/2020 6:18 PM) [facility] DICTATED and SIGNED BY: KATARINA MCINTYRE MD DATE: 05/30/20 [id number] 0 Course & Med Decision Making: Course & Med Decision Making Pertinent Labs and Imaging studies reviewed. (See chart for details) This is a 79-year-old male patient presenting to the ED today with left shoulder pain after falling. Left shoulder, and left humerus x-rays are negative for any acute findings. Sling provided for the left upper extremity by the ED RN, neurovascular exam is intact. Ice elevation encouraged. Follow-up with Ortho in 1 week. Dragon Disclaimer: Dragon Disclaimer: This electronic medical record was generated, in whole or in part, using a voice recognition dictation system. Departure Departure Impression: Primary Impression: Contusion of left shoulder Qualified Codes: S40.012A - Contusion of left shoulder, initial encounter Additional Impression: Fall from standing Qualified Codes: W19.XXXA - Unspecified fall, initial encounter Disposition: 01 DC HOME SELF CARE/HOMELESS Condition: STABLE Referrals: UNKNOWN PCP NAME (PCP) KARINA VALDERRAMA MD Follow-up in a week Patient Instructions: Contusion, [id number] Additional Instructions: You were seen for left shoulder pain, your left shoulder x-rays are negative for any acute findings. Take the prescribed medications as ordered. Follow-up with orthopedic doctor in 1 week. Try to ice and elevate the extremity. Do not leave your left upper extremity in the sling more than an hour. Try and remove it and take it through full range of motion several times a day. Scripts Diclofenac Sodium (VOLTAREN) 100 Gm Gel..gram. 1 GM TP QID for pain for 30 Days, #1 EACH 0 Refills apply to affected area(s) Prov: SALVADOR JOHNSON APRN 05/30/20 SALVADOR JOHNSON APRN May 30, 2020 18:46
[2020-05-30] MEDS ORDERED: DICL100G54 TP (18:55)
== END 2020-05-30 19:30 | disposition home or self-care (01) ==
LOC: ER 16:31
DX: S40.012A Contusion of left shoulder, initial encounter (principal); R20.2 Paresthesia of skin; F41.9 Anxiety disorder, unspecified; F32.9 Major depressive disorder, single episode, unspecified; I10 Essential (primary) hypertension; G89.29 Other chronic pain; Z90.49 Acquired absence of other specified parts of digestive tract; Z98.890 Other specified postprocedural states; W18.39XA Other fall on same level, initial encounter; Y93.89 Activity, other specified; Y92.89 Other specified places as the place of occurrence of the external cause; Y99.8 Other external cause status
CPT/HCPCS: 73030; 73060; 99284; A4565

== ENCOUNTER 2020-07-01 15:00 | Emergency (ER) | payer MEDICARE ==
[~2020-07-01] VITALS: Ht 188 cm; Wt 100.0 kg
[~2020-07-01 15:00] MED LIST changes: +DICL100G54 TP
--- NOTE | 2020-07-01 16:32 | RAD ---
Examination: 2 views of the right hip with frontal view the pelvis HISTORY: History of fall, right-sided pain COMPARISON: 10/25/2016. Findings: The right femoral head is within the acetabula. Moderate joint space loss identified in the right hip joint likely degenerative changes. There is no acute fracture or dislocation identified. Left hip pozo rdware with internal fixation of the left hip again identified. IMPRESSION: 1. Moderate degenerative changes right hip joint. Electronically signed by: Alton Gutierrez MD (07/01/2020 4:30 PM) [id number]
--- NOTE | 2020-07-01 16:44 | PHYS DOC ---
Past Medical History Past Medical History: Anxiety, Depression, Hypertension Additional Past Medical Histor: chronic back pain, NEUROPATHY Past Surgical History: No Surgical History, Cholecystectomy, Other Additional Past Surgical Histo: STENT PLACED IN LEG, BACK SX, LEFT HIP SX Smoking Status: Never Smoker Alcohol Use: None Drug Use: None General Adult EDM: Chief Complaint: MECHANICAL FALL HPI: HPI: Patient is a 79 year old male who was brought here by EMS after he fell [place]. Patient was walking with a cane, lost his balance, fell down on his right hip. He is complaining of right hip pain. He denies any other injury. Patient denies any back pain, no neck pain, no headache. Review of Systems: Review of Systems: Constitutional: Denies fever or chills. [] Eyes: Denies change in visual acuity. [] HENT: Denies nasal congestion or sore throat. [] Respiratory: Denies cough or shortness of breath. [] Cardiovascular: Denies chest pain or edema. [] GI: Denies abdominal pain, nausea, vomiting, bloody stools or diarrhea. [] : Denies dysuria. [] Musculoskeletal: Denies back pain , positive for right hip pain Integument: Denies rash. [] Neurologic: Denies headache, focal weakness or sensory changes. [] Endocrine: Denies polyuria or polydipsia. [] Lymphatic: Denies swollen glands. [] Psychiatric: Denies depression or anxiety. [] Heart Score: Risk Factors: Risk Factors: DM, Current or recent (<one month) smoker, HTN, HLP, family history of CAD, obesity. Risk Scores: Score 0 - 3: 2.5% MACE over next 6 weeks - Discharge Home Score 4 - 6: 20.3% MACE over next 6 weeks - Admit for Clinical Observation Score 7 - 10: 72.7% MACE over next 6 weeks - Early Invasive Strategies Allergies: Allergies: Allergies Coded Allergies Type Severity Reaction Last Updated Verified No Known Drug Allergies 01/14/15 No Physical Exam: PE: Constitutional: Well developed, well nourished, no acute distress, non-toxic appearance. [] HENT: Normocephalic, atraumatic, bilateral external ears normal, oropharynx moist, no oral exudates, nose normal. [] Eyes: PERRLA, EOMI, conjunctiva normal, no discharge. [] Neck: Normal range of motion, no tenderness, supple, no stridor. [] Cardiovascular:Heart rate regular rhythm, no murmur [] Lungs & Thorax: Bilateral breath sounds clear to auscultation [] Abdomen: Bowel sounds normal, soft, no tenderness, no masses, no pulsatile masses. [] Skin: Warm, dry, no erythema, no rash. [] Back: No tenderness, no CVA tenderness. [] Extremities: Right hip is tender to palpation, no deformity, no leg shortening, no external rotation. Neurologic: Alert and oriented X 3, normal motor function, normal sensory function, no focal deficits noted. [] Psychologic: Affect normal, judgement normal, mood normal. [] Current Patient Data: Vital Signs: Vital Signs Date Time Temp Pulse Resp B/P (MAP) Pulse Ox O2 Delivery O2 Flow Rate FiO2 07/01/20 16:12 98.9 91 18 176/84 (114) 94 Room Air 98.9 EKG: EKG: [] Radiology/Procedures: Radiology/Procedures: [][facility] [address] [place] [address] IMAGING REPORT Signed PATIENT: LUCILA GONSALEZ CACCOUNT: [id number] : 1940 LOCATION: ER AGE: 79 SEX: M EXAM STATUS: PRE ER ORD. PHYSICIAN: HAKAN MARIO DO REASON: FELL, RIGHT SIDE HIP PAIN PROCEDURE: HIP RIGHT 2V WITH PELVIS Examination: 2 views of the right hip with frontal view the pelvis HISTORY: History of fall, right-sided pain COMPARISON: 10/25/2016. Findings: The right femoral head is within the acetabula. Moderate joint space loss identified in the right hip joint likely degenerative changes. There is no acute fracture or dislocation identified. Left hip hardware with internal fixation of the left hip again identified. IMPRESSION: 1. Moderate degenerative changes right hip joint. Electronically signed by: Alton Gutierrez MD (07/01/2020 4:30 PM) [id number] DICTATED and SIGNED BY: ALTON GUTIERREZ MD DATE: 07/01/20 [id number] 0 Course & Med Decision Making: Course & Med Decision Making Pertinent Labs and Imaging studies reviewed. (See chart for details) [] Dragon Disclaimer: Dragon Disclaimer: This electronic medical record was generated, in whole or in part, using a voice recognition dictation system. Departure Departure Impression: Primary Impression: Contusion of right hip Disposition: 01 DC HOME SELF CARE/HOMELESS Condition: STABLE Referrals: MELVIN DEL VALLE MD (PCP) Follow-up with your doctor as needed Patient Instructions: Contusion, Hip Pain Additional Instructions: Thank you for visiting our Emergency Department. We appreciate you trusting us with your care. If any additional problems come up don't hesitate to return to visit us. Please follow up with your primary care provider so they can plan additional care if needed and know about the problem that you had. If symptoms worsen come back to the Emergency Department. Any concerning symptoms that start such as chest pain, shortness of air, weakness or numbness on one side of the body, running high fevers or any other concerning symptoms return to the ER. HAKAN MARIO DO Jul 01, 2020 16:44
[2020-07-01 17:30] VITALS: BP 168/82
== END 2020-07-01 17:30 | disposition home or self-care (01) ==
LOC: ER 15:59
DX: S70.01XA Contusion of right hip, initial encounter (principal); F41.9 Anxiety disorder, unspecified; F32.9 Major depressive disorder, single episode, unspecified; I10 Essential (primary) hypertension; G89.29 Other chronic pain; Z90.49 Acquired absence of other specified parts of digestive tract; Z98.890 Other specified postprocedural states; W18.39XA Other fall on same level, initial encounter; Y93.89 Activity, other specified; Y92.89 Other specified places as the place of occurrence of the external cause; Y99.8 Other external cause status
CPT/HCPCS: 73502; 99284

== ENCOUNTER 2020-07-02 11:33 | Inpatient (IN) | payer MEDICARE ==
[~2020-07-02] VITALS: Ht 185.4 cm; Wt 95.4 kg
[~2020-07-02 11:33] MED LIST changes: +MIRT-8 PO; -MIRT30TA3 PO
[2020-07-02] MEDS ORDERED: fentaNYL PF VIAL 100 MCG/2 ML VIAL IVP ONE (11:45)
--- NOTE | 2020-07-02 11:50 | PHYS DOC ---
Past Medical History Past Medical History: Anxiety, Depression, Hypertension Additional Past Medical Histor: chronic back pain, NEUROPATHY (SHAKA ALEX CORPORATE DIRECTOR) Past Surgical History: No Surgical History, Cholecystectomy, Other Additional Past Surgical Histo: STENT PLACED IN LEG, BACK SX, LEFT HIP SX (SHAKA ALEX CORPORATE DIRECTOR) Smoking Status: Never Smoker Alcohol Use: None Drug Use: None (SHAKA ALEX CORPORATE DIRECTOR) General Adult EDM: Chief Complaint: HIP PAIN HPI: HPI: Patient is a 79 year old male who presents with was here yesterday after falling at a bank and injuring his right hip. X-rays were done of the right hip and pelvis and they were negative. Patient was sent home. Patient states he continues to be in severe pain after Percocet and he is unable to ambulate. States he cannot put pressure on the extremity. Patient has a history of left hip replacement, stent in the leg, back surgery, cholecystectomy, depression, anxiety, neuropathy, hypertension. Patient rates his pain a sharp, throbbing pain 10 out of 10. He states the pain is only in the hip. (SHAKA ALEX CORPORATE DIRECTOR) Review of Systems: Review of Systems: Constitutional: Denies fever or chills. [] Eyes: Denies change in visual acuity. [] HENT: Denies nasal congestion or sore throat. [] Respiratory: Denies cough or shortness of breath. [] Cardiovascular: Denies chest pain or edema. [] GI: Denies abdominal pain, nausea, vomiting, bloody stools or diarrhea. [] : Denies dysuria. [] Musculoskeletal: Denies back pain. + Right hip joint pain. [] Integument: Denies rash. [] Neurologic: Denies headache, focal weakness or sensory changes. [] Endocrine: Denies polyuria or polydipsia. [] Lymphatic: Denies swollen glands. [] Psychiatric: Denies depression or anxiety. [] (SHAKA ALEX CORPORATE DIRECTOR) Heart Score: Risk Factors: Risk Factors: DM, Current or recent (<one month) smoker, HTN, HLP, family history of CAD, obesity. Risk Scores: Score 0 - 3: 2.5% MACE over next 6 weeks - Discharge Home Score 4 - 6: 20.3% MACE over next 6 weeks - Admit for Clinical Observation Score 7 - 10: 72.7% MACE over next 6 weeks - Early Invasive Strategies (SHAKA ALEX APRN) Allergies: Allergies: Allergies Coded Allergies Type Severity Reaction Last Updated Verified No Known Drug Allergies 01/14/15 No (SHAKA ALEX APRN) Physical Exam: PE: Constitutional: Well developed, well nourished, no acute distress, non-toxic appearance. [] HENT: Normocephalic, atraumatic, bilateral external ears normal, oropharynx moist, no oral exudates, nose normal. [] Eyes: PERRLA, EOMI, conjunctiva normal, no discharge. [] Neck: Normal range of motion, no tenderness, supple, no stridor. [] Cardiovascular:Heart rate regular rhythm, no murmur [] Lungs & Thorax: Bilateral breath sounds clear to auscultation [] Abdomen: Bowel sounds normal, soft, no tenderness, no masses, no pulsatile masses. [] Skin: Warm, dry, no erythema, no rash. [] Back: No tenderness, no CVA tenderness. [] Extremities: No tenderness, no cyanosis, no clubbing, right hip ROM not intact, no edema. [] Neurologic: Alert and oriented X 3, normal motor function, normal sensory function, no focal deficits noted. [] Psychologic: Affect normal, judgement normal, mood normal. [] (SHAKA ALEX APRN) EKG: EK and read by Dr. Simmons as sinus rhythm and no STEMI. (SHAKA ALEX APRN) Radiology/Procedures: Radiology/Procedures: [] Impression: [facility] [address] [place], [place] [id number] IMAGING REPORT Signed PATIENT: LUCILA GONSALEZ CACCOUNT: [id number] : 1940 LOCATION: ER AGE: 79 SEX: M EXAM STATUS: REG ER ORD. PHYSICIAN: SHAKA ALEX APRN REASON: hip pain, can not bear weight, xray negative 07/01 PROCEDURE: CT LOWER EXTREMITY WO RIGHT Examination: CT bony pelvis without contrast HISTORY: History of hip pain, cannot bear weight COMPARISON: None available TECHNIQUE: Axial CT images of the bony pelvis were performed without contrast. Coronal and sagittal reformats are performed Exposure: One or more of the following individualized dose reduction techniques were utilized for this examination: 1. Automated exposure control 2. Adjustment of the mA and/or kV according to patient size 3. Use of iterative reconstruction technique FINDINGS: The bilateral femoral heads is within the acetabula. Osseous demineralization limits evaluation. Intramedullary yeny and hip screw identified transfixing the left femoral neck with exuberant callus formation about the left femoral neck. Moderate joint space loss identified in the bilateral hip joint likely degenerative changes. There is questionable cortical step-off identified in the posterior aspect at the junction of the femur neck with the greater trochanter, best visualized on series 8 image 66. Partially visualized cystic structures identified in the bilateral kidneys with the largest measuring 3.8 cm probably cyst or cystic lesions. Sigmoid colon diverticulosis. IMPRESSION: 1. Osseous demineralization limits evaluation. There is questionable cortical step-off identified in the posterior aspect at the junction of the greater trochanter with the femoral neck, best visualized on series 8 image 66, best visualized on series 8 image 66. 2. Intramedullary yeny and hip screw identified transfixing the left femoral neck. 3. Moderate joint space loss identified in the bilateral hip joint likely degenerative changes. 4. Partially visualized cystic structures identified in the bilateral kidneys with the largest measuring 3.8 cm probably cysts or cystic lesion. 5. Sigmoid colon diverticulosis. Electronically signed by: Alton Gutierrez MD (07/02/2020 1:41 PM) [id number] DICTATED and SIGNED BY: ALTON GUTIERREZ MD DATE: 07/02/20 [id number] 0 (SHAKA ALEX APRN) Course & Med Decision Making: Course & Med Decision Making Pertinent Labs and Imaging studies reviewed. (See chart for details) See HPI. Alert and oriented x4. The right leg looks longer than the left leg when patient is lying in bed. There was no pain with palpation in the hip does not look deformed. Patient can lift his leg slightly off the bed but he is in extreme pain. Range of motion in the right hip is limited. Speaks in full complete sentences. Skin pink warm and dry. Pedal pulse strong and present. Cap refill less than 2 seconds. I have ordered a CT of the extremity. CT shows possible fracture of the right hip. I have spoken to Dr. Mcneal. Rapid Covid is done in case he needs surgery. Patient admitted to Dr. Obregon. [] (SHAKA ALEX APRN) Anthony Disclaimer: Anthony Disclaimer: This electronic medical record was generated, in whole or in part, using a voice recognition dictation system. (SHAKA ALEX APRN) Departure Departure Impression: Primary Impression: Hip fracture, right Qualified Codes: S72.001A - Fracture of unspecified part of neck of right femur, initial encounter for closed fracture Disposition: ADMITTED INPT THIS HOSP Admitting Physician: NANCIE (SHAKA ALEX APRN) Condition: STABLE Referrals: MELVIN DEL VALLE MD (PCP) Attending Signature Attending Signature I have reviewed the PA/CONTRACTS LAW PROFESSOR's note and plan of care. I was available for consultation as needed during the patient's visit in the emergency department. I agree with the clinical impression, plan, and disposition. (TANO SIMMONS DO) SHAKA ALEX APRN Jul 02, 2020 11:49 TANO SIMMONS DO Jul 03, 2020 18:51
[2020-07-02 12:29] LABS: BASO % 0 % (0-3); EOS # 0.3 x10^3/uL (0.0-0.7); EOS % 4 % (0-3); HEMATOCRIT 34.9 % (39.0-53.0); HEMOGLOBIN 11.4 g/dL (13.0-17.5); LYMPH # 0.5 x10^3/uL (1.0-4.8); LYMPH % 6 % (24-48); MEAN CORPUSCULAR HEMOGLOBIN 27 pg (25-35); MEAN CORPUSCULAR HGB CONC 33 g/dL (31-37); MEAN CORPUSCULAR VOLUME 84 fL (79-100); MONO # 0.8 x10^3/uL (0.0-1.1); MONO % 10 % (0-9); NEUT # 6.5 x10^3/uL (1.8-7.7); NEUT % 80 % (31-73); PLATELET COUNT 239 x10^3/uL (140-400); RED BLOOD COUNT 4.18 x10^6/uL (4.30-5.70); RED CELL DISTRIBUTION WIDTH 14.8 % (11.5-14.5); WHITE BLOOD COUNT 8.2 x10^3/uL (4.0-11.0)
[2020-07-02 12:37] LABS: CALCIUM 8.7 mg/dL (8.5-10.1); CREATININE 1.3 mg/dL (0.7-1.3); GFR 64.6
[2020-07-02 12:43] LABS: ALBUMIN 2.7 g/dL (3.4-5.0); ALBUMIN/GLOBULIN RATIO 0.6 (1.0-1.7); TOTAL BILIRUBIN 0.6 mg/dL (0.2-1.0)
--- NOTE | 2020-07-02 13:43 | RAD ---
Examination: CT bony pelvis without contrast HISTORY: History of hip pain, cannot bear weight COMPARISON: None available TECHNIQUE: Axial CT images of the bony pelvis were performed without contrast. Coronal and sagittal r eformats are performed Exposure: One or more of the following individualized dose reduction techniques were utilized for thi s examination: 1. Automated exposure control 2. Adjustment of the mA and/or kV according to patient size 3. Use of iterative reconstruction technique FINDINGS: The bilateral femoral heads is within the acetabula. Osseous demineralization limits evaluation. Intr amedullary yeny and hip screw identified transfixing the left femoral neck with exuberant callus forma tion about the left femoral neck. Moderate joint space loss identified in the bilateral hip joint lik israel degenerative changes. There is questionable cortical step-off identified in the posterior aspect at the junction of the femur neck with the greater trochanter, best visualized on series 8 image 66. Partially visualized cystic structures identified in the bilateral kidneys with the largest measuring 3.8 cm probably cyst or cystic lesions. Sigmoid colon diverticulosis. IMPRESSION: 1. Osseous demineralization limits evaluation. There is questionable cortical step-off identified in the posterior aspect at the junction of the greater trochanter with the femoral neck, best visualize d on series 8 image 66, best visualized on series 8 image 66. 2. Intramedullary yeny and hip screw identified transfixing the left femoral neck. 3. Moderate joint space loss identified in the bilateral hip joint likely degenerative changes. 4. Partially visualized cystic structures identified in the bilateral kidneys with the largest measu ring 3.8 cm probably cysts or cystic lesion. 5. Sigmoid colon diverticulosis. Electronically signed by: Alton Gutierrez MD (07/02/2020 1:41 PM) [id number]
[2020-07-02] MEDS ORDERED: ONDANSETRON PF 4 MG/2 ML VIAL. IV PRN (14:15)
--- NOTE | 2020-07-02 14:57 | RAD ---
PROCEDURE: XR HAND_RIGHT 3 VIEWS STUDY DATE: 07/02/2020 CLINICAL INDICATION / HISTORY: Reason: right 4th digit pain after fall. unable to straighten fingers / Spl. Instructions: / History: . TECHNIQUE: PA, lateral and oblique views of the right hand. COMPARISON: None FINDINGS: There is deformity to the fourth metatarsal carpal head and the fifth metacarpal head that are suggestive of old, healed fractures. No acute fractures are seen. No dislocation is apparent. The bones are diffusely demineralized. There is variable degree of joint space narrowing in the interpha langeal joints and at the first carpometacarpal joint, suggesting chronic degenerative change. Soft t issues are unremarkable. IMPRESSION: Old fractures of the fourth and fifth metacarpals with no radiographic evidence of acute fracture. If there is a high index of suspicion for an acute fracture, further imaging by CT or MRI c ould be pursued. Electronically signed by: Eric Rushing MD (07/02/2020 2:55 PM) [id number]
[2020-07-02] MEDS: fentaNYL PF VIAL 100 MCG/2 ML VIAL IV PRN ×2 (15:05→19:37)
[2020-07-02 16:11] VITALS: BP 154/79
[2020-07-02] MEDS: IV NORMAL SALINE 1000ML BAG 1,000 ML IV SCH (16:32)
[2020-07-02] MEDS ORDERED: CYCLOBENZAPRINE 10 MG TABLET. PO PRN (19:15)
[2020-07-02 19:25] VITALS: BP 174/90
[2020-07-02] MEDS: cloNIDine HCL 0.1 MG TABLET PO SCH (19:38)
[2020-07-02] MEDS: CYCLOBENZAPRINE 10 MG TABLET. PO SCH (19:38)
[2020-07-02] MEDS: ATORVASTATIN CALCIUM 20 MG TABLET PO SCH (19:38)
[2020-07-02] MEDS: CARVEDILOL 3.125 MG TABLET. PO SCH (19:39)
--- NOTE | 2020-07-02 20:11 | HP ---
ADMIT DATE: 07/02/2020 CHIEF COMPLAINT: Hip pain. HISTORY OF PRESENT ILLNESS: The patient is a pleasant 79-year-old male who fell and actually presented to the ER yesterday. Imaging studies were done yesterday, which were negative, but he continues to have severe 10/10 pain. We did a CAT scan of the bony pelvis with contrast, which is showing osseous demineralization and a questionable cortical step-off in the posterior aspect of the junction of the greater trochanter, which were concerned could be a previous undiagnosed fracture. I discussed the case with the ER physician. We are going to admit the patient and consult Orthopedics. It should also be noted that the right hand x-rays are showing old fractures of the fourth and fifth metacarpals. PAST MEDICAL HISTORY: Anxiety, depression, hypertension, chronic pain, neuropathy, cholecystectomy, stent placed in the legs, back surgery, and left hip surgery. ALLERGIES: None. FAMILY HISTORY: Diabetes. SOCIAL HISTORY: Does not drink, smoke or take drugs. He is retired. MEDICATIONS: Reviewed, please refer to the MRAD. REVIEW OF SYSTEMS: GENERAL: No history of weight change, weakness or fevers. SKIN: No bruising, hair changes or rashes. EYES: No blurred, double or loss of vision. NOSE AND THROAT: No history of nosebleeds, hoarseness or sore throat. HEART: No history of palpitations, chest pain or shortness of breath on exertion. LUNGS: Denies cough, hemoptysis, wheezing or shortness of breath. GASTROINTESTINAL: Denies changes in appetite, nausea, vomiting, diarrhea or constipation. GENITOURINARY: No history of frequency, urgency, hesitancy or nocturia. NEUROLOGIC: Denies history of numbness, tingling, tremor or weakness. PSYCHIATRIC: No history of panic, anxiety or depression. ENDOCRINE: No history of heat or cold intolerance, polyuria or polydipsia. EXTREMITIES: Denies muscle weakness. Right hip pain. PHYSICAL EXAMINATION: VITALS: Within normal limits and are stable. GENERAL: No apparent distress. Alert and oriented. HEENT: Normal cephalic atraumatic, external auditory canals are patent. EYES: Extraocular muscles are intact, pupils are equally round and reactive to light and accommodation MUSCULOSKELETAL: Well developed, well nourished, good range of motion. ENDOCRINE: No thyromegaly was palpated. LYMPHATICS: No cervical chain or axillary nodes were noted. HEMATOPOIETIC: No bruising. NECK: Supple, no JVD, no thyromegaly was noted. LUNGS: Clear to auscultation in all lung blanc without rhonchi or wheezing. HEART: RRR, S1, S2 present. Peripheral pulses intact, no obvious murmurs were noted. ABDOMEN: Soft, nontender. Positive bowel sounds no organomegaly, normal bowel sounds. EXTREMITIES: Without any cyanosis, clubbing, or edema. Pedal pulses intact, Homans sign is negative. NEUROLOGIC: Normal speech, normal tone. A & O x3, moves all extremities, no obvious focal deficits. PSYCHIATRIC: Normal affect, normal mood. Stable. SKIN: No ulcerations or rashes, good skin turgor, no jaundice. VASCULAR: Good capillary refill, neurovascular bundle appears to be intact. LABORATORY DATA: White count 8, hemoglobin 11, platelets 239. Electrolytes are normal other than a sodium of 135. COVID testing is negative. ASSESSMENT AND PLAN: Probable right hip fracture. The patient has been admitted. We will consult Orthopedics. P.r.n. pain meds, home meds, DVT prophylaxis. Full code. IV fluids. Bed rest with commode. ADARSH CARVALHO DO DR: MYRNA/loreta JOB#: [id number] / [id number]
[2020-07-02] MEDS: DICLOFENAC SODIUM 1% TOPICAL GEL 100GM TUBE. TP SCH (21:00)
[2020-07-02 23:01] VITALS: BP 176/88
[2020-07-03] MEDS: fentaNYL PF VIAL 100 MCG/2 ML VIAL IV PRN ×4 (02:27→11:31)
[2020-07-03] MEDS: IV NORMAL SALINE 1000ML BAG 1,000 ML IV SCH ×2 (02:27→10:15)
[2020-07-03 02:48] VITALS: BP 183/92
[2020-07-03] MEDS: CALCIUM CARBONATE 500 MG TAB.CHEW PO PRN ×2 (05:36→08:34)
[2020-07-03 07:00] VITALS: BP 169/101
[2020-07-03] MEDS: hydroCHLOROthiazide 25 MG TABLET PO SCH (08:35)
[2020-07-03] MEDS: LOSARTAN POTASSIUM 50 MG TABLET. PO SCH (08:36)
[2020-07-03] MEDS: CYCLOBENZAPRINE 10 MG TABLET. PO SCH ×3 (08:36→20:35)
[2020-07-03] MEDS: CARVEDILOL 3.125 MG TABLET. PO SCH ×2 (08:36→17:36)
[2020-07-03] MEDS: DICLOFENAC SODIUM 1% TOPICAL GEL 100GM TUBE. TP SCH ×4 (08:40→20:39)
[2020-07-03] MEDS ORDERED: NON FORMULARY ITEM (Losartan/Hydrochlorothiazide (Losartan-Hctz 100-25 Mg Tab) 1 TAB) PO SCH (09:00)
[2020-07-03 11:00] VITALS: BP 162/93
--- NOTE | 2020-07-03 11:09 | PDOC ---
[facility] PROGRESS NOTE Date of Service DOS: DATE: 07/03/20 TIME: 10:50 Chief Complaint Chief Complaint Acute mechanical fall Bilateral hip osteoarthritis questionable RIGHT cortical step-off identified in the posterior aspect at the junction of the greater trochanter with the femoral neck Sigmoid colon diverticulosis. Admit to medicine for further management. Orthopedic consult P.r.n. pain meds, home meds, DVT prophylaxis. Full code. IV fluids. Bed rest with commode. History of Present Illness History of Present Illness 07/03/20 No acute events overnight. Patient's pain is well controlled. Pending Ortho evaluation. Patient's chart, labs, images were reviewed and discussed with RN 79-year-old male who fell and actually presented to the ER yesterday. Imaging studies were done yesterday, which were negative, but he continues to have severe 10/10 pain. We did a CAT scan of the bony pelvis with contrast, which is showing osseous demineralization and a questionable cortical step-off in the posterior aspect of the junction of the greater trochanter, which were concerned could be a previous undiagnosed fracture. I discussed the case with the ER physician. We are going to admit the patient and consult Orthopedics. It should also be noted that the right hand x-rays are showing old fractures of the fourth and fifth metacarpals. Vitals/I&O Vitals/I&O: Vital Signs Date Time Temp Pulse Resp B/P (MAP) Pulse Ox O2 Delivery O2 Flow Rate FiO2 07/03/20 08:36 99 169/101 07/03/20 08:33 Room Air 07/03/20 07:00 98.3 18 94 98.3 I & O 07/02/20 07/02/20 07/03/20 15:00 23:00 07:00 Output Total 825 ml Balance -825 ml Physical Exam Lungs: Clear Labs Labs: Laboratory Tests Test 07/02/20 12:20 07/02/20 15:06 White Blood Count 8.2 x10^3/uL (4.0-11.0) Red Blood Count 4.18 x10^6/uL (4.30-5.70) Hemoglobin 11.4 g/dL (13.0-17.5) Hematocrit 34.9 % (39.0-53.0) Mean Corpuscular Volume 84 fL (79-100) Mean Corpuscular Hemoglobin 27 pg (25-35) Mean Corpuscular Hemoglobin Concent 33 g/dL (31-37) Red Cell Distribution Width 14.8 % (11.5-14.5) Platelet Count 239 x10^3/uL (140-400) Neutrophils (%) (Auto) 80 % (31-73) Lymphocytes (%) (Auto) 6 % (24-48) Monocytes (%) (Auto) 10 % (0-9) Eosinophils (%) (Auto) 4 % (0-3) Basophils (%) (Auto) 0 % (0-3) Neutrophils # (Auto) 6.5 x10^3/uL (1.8-7.7) Lymphocytes # (Auto) 0.5 x10^3/uL (1.0-4.8) Monocytes # (Auto) 0.8 x10^3/uL (0.0-1.1) Eosinophils # (Auto) 0.3 x10^3/uL (0.0-0.7) Basophils # (Auto) 0.0 x10^3/uL (0.0-0.2) Sodium Level 135 mmol/L (136-145) Potassium Level 4.0 mmol/L (3.5-5.1) Chloride Level 103 mmol/L (98-107) Carbon Dioxide Level 25 mmol/L (21-32) Anion Gap 7 (6-14) Blood Urea Nitrogen 22 mg/dL (8-26) Creatinine 1.3 mg/dL (0.7-1.3) Estimated GFR (Cockcroft-Gault) 64.6 BUN/Creatinine Ratio 17 (6-20) Glucose Level 122 mg/dL (70-99) Calcium Level 8.7 mg/dL (8.5-10.1) Total Bilirubin 0.6 mg/dL (0.2-1.0) Aspartate Amino Transf (AST/SGOT) 28 U/L (15-37) Alanine Aminotransferase (ALT/SGPT) 33 U/L (16-63) Alkaline Phosphatase 78 U/L (46-116) Total Protein 7.0 g/dL (6.4-8.2) Albumin 2.7 g/dL (3.4-5.0) Albumin/Globulin Ratio 0.6 (1.0-1.7) SARS-CoV-2 Antigen (Rapid) Negative (NEGATIVE) Assessment and Plan Assessmemt and Plan Problems Medical Problems: (1) Hip fracture, right Status: Acute Comment Review of Relevant I have reviewed the following items inessa (where applicable) has been applied. Medications: Current Medications Medications (Trade) Dose Ordered Sig/Kimberly Route PRN Reason Start Time Stop Time Status Last Admin Dose Admin Fentanyl Citrate (Fentanyl 2ml Vial) 50 mcg 1X ONCE IVP 07/02/20 11:45 07/02/20 11:46 DC 07/02/20 12:20 Fentanyl Citrate (Fentanyl 2ml Vial) 50 mcg PRN Q1HR PRN IV PAIN 07/02/20 14:15 07/03/20 14:14 07/03/20 07:58 Sodium Chloride 1,000 ml @ 100 mls/hr Q10H IV 07/02/20 14:15 07/03/20 14:14 07/03/20 02:27 Amlodipine Besylate (Norvasc) 5 mg DAILY PO 07/03/20 09:00 07/03/20 08:36 Atorvastatin Calcium (Lipitor) 20 mg HS PO 07/02/20 21:00 07/02/20 19:38 Carvedilol (Coreg) 3.125 mg BIDWMEALS PO 07/02/20 21:00 07/03/20 08:36 Clonidine HCl (Catapres) 0.1 mg QHS PO 07/02/20 21:00 07/02/20 19:38 Cyclobenzaprine HCl (Flexeril) 10 mg TID PO 07/02/20 21:00 07/03/20 08:36 Losartan Potassium (Cozaar) 100 mg DAILY PO 07/03/20 09:00 07/03/20 08:36 Hydrochlorothiazide (Hydrodiuril) 25 mg DAILY PO 07/03/20 09:00 07/03/20 08:35 Calcium Carbonate/ Glycine (Tums) 500 mg PRN AFTMEALHC PRN PO INDIGESTION 07/03/20 05:30 07/03/20 08:34 Justifications for Admission Other Justification RICHI PUENTE MD Jul 03, 2020 11:09
--- NOTE | 2020-07-03 12:21 | PDOC2 ---
CONSULT Date of Consult Date of Consult DATE: 07/03/20 TIME: 12:20 Reason for Consult Reason for Consult: Right hip pain after a fall, right hip fracture Identification/Chief Complaint Chief Complaint Right hip pain after a fall Source Source: Chart review, Patient History of Present Illness Reason for Visit: This 79-year-old man fell on the , had hip pain, and came to the emergency room. X-rays initially were negative. He was discharged home but returned on the with increasing pain, and difficulty walking. CT scan shows a greater trochanter fracture with possible extension to the posterior femoral neck. He has a history of left hip intramedullary nail for hip fracture. Past Medical History Cardiovascular: HTN GI: No pertinent hx Family History Family History: High Cholestrol, Hypertension Social History ALCOHOL: none Drugs: None Current Problem List Problem List Problems Medical Problems: (1) Hip fracture, right Status: Acute Current Medications Current Medications Current Medications Fentanyl Citrate (Fentanyl 2ml Vial) 50 mcg 1X ONCE IVP Last administered on 07/02/20at 12:20; Start 07/02/20 at 11:45; Stop 07/02/20 at 11:46; Status DC Ondansetron HCl (Zofran) 4 mg PRN Q8HRS PRN IV NAUSEA/VOMITING; Start 07/02/20 at 14:15; Stop 07/03/20 at 14:14 Fentanyl Citrate (Fentanyl 2ml Vial) 50 mcg PRN Q1HR PRN IV PAIN Last administered on 07/03/20at 11:31; Start 07/02/20 at 14:15; Stop 07/03/20 at 14:14 Sodium Chloride 1,000 ml @ 100 mls/hr Q10H IV Last administered on 07/03/20at 02:27; Start 07/02/20 at 14:15; Stop 07/03/20 at 14:14 Amlodipine Besylate (Norvasc) 5 mg DAILY PO Last administered on 07/03/20at 08:36; Start 07/03/20 at 09:00 Atorvastatin Calcium (Lipitor) 20 mg HS PO Last administered on 07/02/20at 19:38; Start 07/02/20 at 21:00 Carvedilol (Coreg) 3.125 mg BIDWMEALS PO Last administered on 07/03/20at 08:36; Start 07/02/20 at 21:00 Clonidine HCl (Catapres) 0.1 mg QHS PO Last administered on 07/02/20at 19:38; Start 07/02/20 at 21:00 Diclofenac Sodium (Voltaren) 1 cathy QID TP ; Start 07/02/20 at 21:00 Cyclobenzaprine HCl (Flexeril) 10 mg TID PO Last administered on 07/03/20at 08:36; Start 07/02/20 at 21:00 Cyclobenzaprine HCl (Flexeril) 5 mg PRN BID PRN PO MUSCLE SPASMS; Start 07/02/20 at 19:15 Non-Formulary Medication (Losartan/ Hydrochlorothiazide (Losartan-Hctz 100-25 Mg Tab)) 1 tab DAILY PO ; Start 07/03/20 at 09:00; Status UNV Losartan Potassium (Cozaar) 100 mg DAILY PO Last administered on 07/03/20at 08:36; Start 07/03/20 at 09:00 Hydrochlorothiazide (Hydrodiuril) 25 mg DAILY PO Last administered on 07/03/20at 08:35; Start 07/03/20 at 09:00 Calcium Carbonate/ Glycine (Tums) 500 mg PRN AFTMEALHC PRN PO INDIGESTION Last administered on 07/03/20at 08:34; Start 07/03/20 at 05:30 Active Scripts Active Voltaren (Diclofenac Sodium) 100 Gm Gel..gram. 1 Gm TP QID 30 Days apply to affected area(s) Alprazolam 0.5 Mg Tablet 1 Tab PO PRN BID PRN Cyclobenzaprine Hcl 5 Mg Tablet 1 Tab PO PRN BID PRN [place] 5-325 Tablet (Acetaminophen/Hydrocodone Bitart) 1 Each Tablet 1-2 Each PO PRN Q6HRS PRN as needed for pain Hydroxyzine Hcl 25 Mg Tablet 1 Tab PO PRN TID PRN Hydrocodone-Apap 5-325 (Hydrocodone Bit/Acetaminophen) 1 Each Tablet 1 Tab PO PRN Q6HRS PRN Be careful as this medication may cause you to be drowsy or tired. Do not drive on this medication. Reported Carvedilol (Carvedilol) 3.125 Mg Tablet 1 Tab PO BID Carisoprodol 350 Mg Tablet 1 Tab PO TID Mirtazapine 30 Mg Tablet 1 Tab PO QHS Amlodipine Besylate 5 Mg Tablet 5 Mg PO DAILY Atorvastatin Calcium 20 Mg Tablet 20 Mg PO HS Losartan-Hctz 100-25 Mg Tab (Losartan/Hydrochlorothiazide) 1 Each Tablet 1 Tab PO DAILY Clopidogrel (Clopidogrel Bisulfate) 75 Mg Tablet 1 Tab PO DAILY Percocet 10-325 Mg Tablet (Oxycodone/Acetaminophen) 1 Each Tablet 1 Tab PO Q4-6HRS Gabapentin (Gabapentin) 300 Mg Capsule 1 Cap PO TID Clonidine Hcl 0.1 Mg Tablet 1 Tab PO QHS Allergies Allergies: Coded Allergies: No Known Drug Allergies (Unverified , 01/14/15) ROS Review of System GENERAL: No history of weight change, weakness or fevers. SKIN: No bruising, hair changes or rashes. EYES: No blurred, double or loss of vision. NOSE AND THROAT: No history of nosebleeds, hoarseness or sore throat. HEART: No history of palpitations, chest pain or shortness of breath on exertion. LUNGS: Denies cough, hemoptysis, wheezing or shortness of breath. GASTROINTESTINAL: Denies changes in appetite, nausea, vomiting, diarrhea or constipation. GENITOURINARY: No history of frequency, urgency, hesitancy or nocturia. NEUROLOGIC: Denies history of numbness, tingling, tremor or weakness. PSYCHIATRIC: No history of panic, anxiety or depression. ENDOCRINE: No history of heat or cold intolerance, polyuria or polydipsia. EXTREMITIES: Denies muscle weakness. Right hip pain. Physical Exam General: Alert, Cooperative HEENT: Atraumatic Lungs: Normal air movement Heart: Regular rate Abdomen: Soft Extremities: Normal pulses, Other (I did careful circumduction of the right hip. This was only minimally painful, consistent with a greater trochanter fracture. Percussion on the heel does not seem to recreate hip pain. Light touch sensation is intact. Length and rotation are normal, with no malalignment or shortening.) Skin: No breakdown, No significant lesion Neuro: Normal tone, Sensation intact Psych/Mental Status: Mental status NL, Mood NL Vitals VITALS Vital Signs Date Time Temp Pulse Resp B/P (MAP) Pulse Ox O2 Delivery O2 Flow Rate FiO2 07/03/20 11:31 Room Air 07/03/20 11:00 98.2 96 18 162/93 (116) 96 98.2 Labs Labs Laboratory Tests Test 07/02/20 12:20 07/02/20 15:06 White Blood Count 8.2 x10^3/uL (4.0-11.0) Red Blood Count 4.18 x10^6/uL (4.30-5.70) Hemoglobin 11.4 g/dL (13.0-17.5) Hematocrit 34.9 % (39.0-53.0) Mean Corpuscular Volume 84 fL (79-100) Mean Corpuscular Hemoglobin 27 pg (25-35) Mean Corpuscular Hemoglobin Concent 33 g/dL (31-37) Red Cell Distribution Width 14.8 % (11.5-14.5) Platelet Count 239 x10^3/uL (140-400) Neutrophils (%) (Auto) 80 % (31-73) Lymphocytes (%) (Auto) 6 % (24-48) Monocytes (%) (Auto) 10 % (0-9) Eosinophils (%) (Auto) 4 % (0-3) Basophils (%) (Auto) 0 % (0-3) Neutrophils # (Auto) 6.5 x10^3/uL (1.8-7.7) Lymphocytes # (Auto) 0.5 x10^3/uL (1.0-4.8) Monocytes # (Auto) 0.8 x10^3/uL (0.0-1.1) Eosinophils # (Auto) 0.3 x10^3/uL (0.0-0.7) Basophils # (Auto) 0.0 x10^3/uL (0.0-0.2) Sodium Level 135 mmol/L (136-145) Potassium Level 4.0 mmol/L (3.5-5.1) Chloride Level 103 mmol/L (98-107) Carbon Dioxide Level 25 mmol/L (21-32) Anion Gap 7 (6-14) Blood Urea Nitrogen 22 mg/dL (8-26) Creatinine 1.3 mg/dL (0.7-1.3) Estimated GFR (Cockcroft-Gault) 64.6 BUN/Creatinine Ratio 17 (6-20) Glucose Level 122 mg/dL (70-99) Calcium Level 8.7 mg/dL (8.5-10.1) Total Bilirubin 0.6 mg/dL (0.2-1.0) Aspartate Amino Transf (AST/SGOT) 28 U/L (15-37) Alanine Aminotransferase (ALT/SGPT) 33 U/L (16-63) Alkaline Phosphatase 78 U/L (46-116) Total Protein 7.0 g/dL (6.4-8.2) Albumin 2.7 g/dL (3.4-5.0) Albumin/Globulin Ratio 0.6 (1.0-1.7) SARS-CoV-2 Antigen (Rapid) Negative (NEGATIVE) Laboratory Tests Test 07/02/20 15:06 SARS-CoV-2 Antigen (Rapid) Negative (NEGATIVE) Images Images CT scan and x-ray reports reviewed and images independently reviewed. On the CT scan series 9 image 64 the greater trochanter fracture is seen, nondisplaced and really just at the tip of the trochanter. Series 9 image 71 shows where that fracture comes close to the femoral neck and also on series 9 image 63. There is no medial calcar neck involvement, no displacement of the femoral neck. [facility] [address] [place] [address] IMAGING REPORT Signed PATIENT: LUCILA GONSALEZ ACCOUNT: [id number] : 1940 LOCATION: ER AGE: 79 SEX: M EXAM STATUS: REG ER ORD. PHYSICIAN: SHAKA ALEX APRN REASON: hip pain, can not bear weight, xray negative 07/01 PROCEDURE: CT LOWER EXTREMITY WO RIGHT Examination: CT bony pelvis without contrast HISTORY: History of hip pain, cannot bear weight COMPARISON: None available TECHNIQUE: Axial CT images of the bony pelvis were performed without contrast. Coronal and sagittal reformats are performed Exposure: One or more of the following individualized dose reduction techniques were utilized for this examination: 1. Automated exposure control 2. Adjustment of the mA and/or kV according to patient size 3. Use of iterative reconstruction technique FINDINGS: The bilateral femoral heads is within the acetabula. Osseous demineralization limits evaluation. Intramedullary yeny and hip screw identified transfixing the left femoral neck with exuberant callus formation about the left femoral neck. Moderate joint space loss identified in the bilateral hip joint likely degenerative changes. There is questionable cortical step-off identified in the posterior aspect at the junction of the femur neck with the greater trochanter, best visualized on series 8 image 66. Partially visualized cystic structures identified in the bilateral kidneys with the largest measuring 3.8 cm probably cyst or cystic lesions. Sigmoid colon diverticulosis. IMPRESSION: 1. Osseous demineralization limits evaluation. There is questionable cortical step-off identified in the posterior aspect at the junction of the greater trochanter with the femoral neck, best visualized on series 8 image 66, best visualized on series 8 image 66. 2. Intramedullary yeny and hip screw identified transfixing the left femoral neck. 3. Moderate joint space loss identified in the bilateral hip joint likely degenerative changes. 4. Partially visualized cystic structures identified in the bilateral kidneys with the largest measuring 3.8 cm probably cysts or cystic lesion. 5. Sigmoid colon diverticulosis. Electronically signed by: Alton Gutierrez MD (07/02/2020 1:41 PM) [id number] DICTATED and SIGNED BY: ALTON GUTIERREZ MD DATE: 07/02/20 1328 Assessment/Plan Assessment/Plan Greater trochanter fracture. This does extend to the base of the femoral neck on a couple of the CT slices, but without any disruption of the femoral neck. The entire medial neck is intact without fracture, and there is no impaction or other evidence of femoral neck instability. I believe this is a stable greater trochanter fracture, with minimal femoral neck involvement and that no surgery is required. The femoral neck involvement is low risk for progression. The patient did ask what happens if he falls down. Hopefully that can be avoided with use of a walker, but if for some reason he fell again and changed the fracture pattern, then I would reassess if surgery would be required. At present I recommend nonoperative treatment, use of a walker, weightbearing as tolerated with a walker, and office follow-up. He agrees with that plan. KARINA VALDERRAMA MD Jul 03, 2020 12:21
[2020-07-03 15:00] VITALS: BP 186/99
[2020-07-03] MEDS ORDERED: MORPHINE SULFATE 2 MG/ML VIAL. IV PRN (15:00)
[2020-07-03] MEDS: oxyCODONE/APAP 10/325 1 TAB TABLET PO PRN ×2 (15:10→23:05)
--- NOTE | 2020-07-03 18:30 | EKG ---
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
[2020-07-03 19:00] VITALS: BP 154/78
[2020-07-03] MEDS: ATORVASTATIN CALCIUM 20 MG TABLET PO SCH (20:35)
[2020-07-03] MEDS: cloNIDine HCL 0.1 MG TABLET PO SCH (20:36)
[2020-07-03 23:00] VITALS: BP 162/88
[2020-07-04 03:04] VITALS: BP 151/78
[2020-07-04 07:00] VITALS: BP 170/95
[2020-07-04] MEDS: oxyCODONE/APAP 10/325 1 TAB TABLET PO PRN ×3 (07:21→21:53)
[2020-07-04] MEDS: CARVEDILOL 3.125 MG TABLET. PO SCH ×2 (09:08→17:06)
[2020-07-04] MEDS: LOSARTAN POTASSIUM 50 MG TABLET. PO SCH (09:09)
[2020-07-04] MEDS: CYCLOBENZAPRINE 10 MG TABLET. PO SCH ×3 (09:09→21:53)
[2020-07-04] MEDS: hydroCHLOROthiazide 25 MG TABLET PO SCH (09:09)
[2020-07-04] MEDS: DICLOFENAC SODIUM 1% TOPICAL GEL 100GM TUBE. TP SCH ×4 (09:13→21:55)
--- NOTE | 2020-07-04 09:41 | PDOC ---
[facility] PROGRESS NOTE Date of Service DOS: DATE: 07/04/20 TIME: 09:39 Chief Complaint Chief Complaint Acute mechanical fall Bilateral hip osteoarthritis questionable RIGHT cortical step-off identified in the posterior aspect at the junction of the greater trochanter with the femoral neckOrtho recommends conservative management. Sigmoid colon diverticulosis. Admit to medicine for further management. Orthopedic consult P.r.n. pain meds, home meds, DVT prophylaxis. Full code. IV fluids. Bed rest with commode. History of Present Illness History of Present Illness 07/04/2020 No acute events overnight. Patient remains afebrile. Seen and examined bedside. Pain is well controlled. Pending PT OT evaluation. Patient lives at home with his and son and also has had home health come to his house before. We will wait for Sunday for group social worker to be here to arrange home health if recommended by PT or if they agree for acute rehab. Patient's chart, labs, images were reviewed and discussed with RN 07/03/20 No acute events overnight. Patient's pain is well controlled. Pending Ortho evaluation. Patient's chart, labs, images were reviewed and discussed with RN 79-year-old male who fell and actually presented to the ER yesterday. Imaging studies were done yesterday, which were negative, but he continues to have severe 10/10 pain. We did a CAT scan of the bony pelvis with contrast, which is showing osseous demineralization and a questionable cortical step-off in the posterior aspect of the junction of the greater trochanter, which were concerned could be a previous undiagnosed fracture. I discussed the case with the ER physician. We are going to admit the patient and consult Orthopedics. It should also be noted that the right hand x-rays are showing old fractures of the fourth and fifth metacarpals. Vitals/I&O Vitals/I&O: Vital Signs Date Time Temp Pulse Resp B/P (MAP) Pulse Ox O2 Delivery O2 Flow Rate FiO2 07/04/20 09:14 Room Air 07/04/20 09:09 75 170/95 07/04/20 07:00 98.3 18 96 98.3 I & O 07/03/20 07/03/20 07/04/20 14:59 22:59 06:59 Intake Total 240 ml 240 ml Output Total 280 ml 400 ml 550 ml Balance -40 ml -160 ml -550 ml Physical Exam General: Alert, Cooperative Heart: Regular rate Lungs: Clear Abdomen: Soft Extremities: Normal pulses, Other (I did careful circumduction of the right hip. This was only minimally painful, consistent with a greater trochanter fracture. Percussion on the heel does not seem to recreate hip pain. Light touch sensation is intact. Length and rotation are normal, with no malalignment or shortening.) Skin: No breakdown, No significant lesion Assessment and Plan Assessmemt and Plan Problems Medical Problems: (1) Hip fracture, right Status: Acute Comment Review of Relevant I have reviewed the following items inessa (where applicable) has been applied. Medications: Current Medications Medications (Trade) Dose Ordered Sig/Kimberly Route PRN Reason Start Time Stop Time Status Last Admin Dose Admin Oxycodone/ Acetaminophen (Percocet 10/325) 1 tab PRN Q6HRS PRN PO PAIN 07/03/20 15:00 07/04/20 07:21 Justifications for Admission Other Justification RICHI PUENTE MD Jul 04, 2020 09:41
[2020-07-04 11:00] VITALS: BP 97/55
--- NOTE | 2020-07-04 11:30 | PDOC ---
PROGRESS NOTES Date of Service DATE: 07/04/20 TIME: 11:29 Subjective Subjective He is up with a walker and with therapy assistance using a gait belt, and ambulating without difficulty. Objective Vital Signs Vital Signs Date Time Temp Pulse Resp B/P (MAP) Pulse Ox O2 Delivery O2 Flow Rate FiO2 07/04/20 09:14 Room Air 07/04/20 09:09 75 170/95 07/04/20 07:00 98.3 18 96 98.3 Physical Exam Hip tenderness is present but does not prohibit ambulation. Labs Laboratory Tests Test 07/02/20 12:20 07/02/20 15:06 White Blood Count 8.2 x10^3/uL (4.0-11.0) Red Blood Count 4.18 x10^6/uL (4.30-5.70) Hemoglobin 11.4 g/dL (13.0-17.5) Hematocrit 34.9 % (39.0-53.0) Mean Corpuscular Volume 84 fL (79-100) Mean Corpuscular Hemoglobin 27 pg (25-35) Mean Corpuscular Hemoglobin Concent 33 g/dL (31-37) Red Cell Distribution Width 14.8 % (11.5-14.5) Platelet Count 239 x10^3/uL (140-400) Neutrophils (%) (Auto) 80 % (31-73) Lymphocytes (%) (Auto) 6 % (24-48) Monocytes (%) (Auto) 10 % (0-9) Eosinophils (%) (Auto) 4 % (0-3) Basophils (%) (Auto) 0 % (0-3) Neutrophils # (Auto) 6.5 x10^3/uL (1.8-7.7) Lymphocytes # (Auto) 0.5 x10^3/uL (1.0-4.8) Monocytes # (Auto) 0.8 x10^3/uL (0.0-1.1) Eosinophils # (Auto) 0.3 x10^3/uL (0.0-0.7) Basophils # (Auto) 0.0 x10^3/uL (0.0-0.2) Sodium Level 135 mmol/L (136-145) Potassium Level 4.0 mmol/L (3.5-5.1) Chloride Level 103 mmol/L (98-107) Carbon Dioxide Level 25 mmol/L (21-32) Anion Gap 7 (6-14) Blood Urea Nitrogen 22 mg/dL (8-26) Creatinine 1.3 mg/dL (0.7-1.3) Estimated GFR (Cockcroft-Gault) 64.6 BUN/Creatinine Ratio 17 (6-20) Glucose Level 122 mg/dL (70-99) Calcium Level 8.7 mg/dL (8.5-10.1) Total Bilirubin 0.6 mg/dL (0.2-1.0) Aspartate Amino Transf (AST/SGOT) 28 U/L (15-37) Alanine Aminotransferase (ALT/SGPT) 33 U/L (16-63) Alkaline Phosphatase 78 U/L (46-116) Total Protein 7.0 g/dL (6.4-8.2) Albumin 2.7 g/dL (3.4-5.0) Albumin/Globulin Ratio 0.6 (1.0-1.7) Coronavirus (PCR) Not detected (Not Detected) SARS-CoV-2 Antigen (Rapid) Negative (NEGATIVE) Assessment Assessment Greater trochanter fracture, minimal extension to the femoral neck, nonsurgical treatment is planned. Plan Plan of Care Weight-bear as tolerated with a walker. Office follow-up with me in 10 to 14 days for additional x-rays. Justicifation of Admission Dx: Justifications for Admission: Justification of Admission Dx: N/A KARINA VALDERRAMA MD Jul 04, 2020 11:30
[2020-07-04 15:00] VITALS: BP 122/68
[2020-07-04 19:00] VITALS: BP 129/86
[2020-07-04] MEDS: ATORVASTATIN CALCIUM 20 MG TABLET PO SCH (21:53)
[2020-07-04] MEDS: cloNIDine HCL 0.1 MG TABLET PO SCH (21:54)
[2020-07-04 23:00] VITALS: BP 122/74
[2020-07-05 03:00] VITALS: BP 148/81
[2020-07-05] MEDS: oxyCODONE/APAP 10/325 1 TAB TABLET PO PRN ×2 (05:39→11:51)
[2020-07-05 07:00] VITALS: BP 140/71
[2020-07-05] MEDS: hydroCHLOROthiazide 25 MG TABLET PO SCH (08:10)
[2020-07-05] MEDS: LOSARTAN POTASSIUM 50 MG TABLET. PO SCH (08:10)
[2020-07-05 08:11] VITALS: BP 140/71
[2020-07-05] MEDS: DICLOFENAC SODIUM 1% TOPICAL GEL 100GM TUBE. TP SCH ×2 (08:11→12:29)
[2020-07-05] MEDS: CYCLOBENZAPRINE 10 MG TABLET. PO SCH ×2 (08:11→13:44)
[2020-07-05] MEDS: CARVEDILOL 3.125 MG TABLET. PO SCH (08:11)
--- NOTE | 2020-07-05 10:21 | PDOC ---
[facility] PROGRESS NOTE Date of Service DOS: DATE: 07/05/20 TIME: 10:07 Chief Complaint Chief Complaint A/P: Acute mechanical fall Bilateral hip osteoarthritis Right greater trochanteric fracture - non-operative management per ortho Sigmoid colon diverticulosis. PVD - s/p left FSA stenting HTN Admit to medicine for further management. Orthopedic consult P.r.n. pain meds, home meds, DVT prophylaxis. Full code. IV fluids. Bed rest with commode. History of Present Illness History of Present Illness Mr Marquez is a 79-year-old male w/ PMHx PVD, HTN who fell and actually presented to the ER 1 day prior to admit, negative for fracture, but returned to ED c/o severe 10/[address] scan shows a greater trochanter fracture with possible extension to the posterior femoral neck. He has a history of left hip intramedullary nail for hip fracture. Right hand x-rays are showing old fractures of the fourth and fifth metacarpals. 07/03: No acute events overnight. Patient's pain is well controlled. Pending Ortho evaluation. Patient's chart, labs, images were reviewed and discussed with RN 07/04: No acute events overnight. Patient remains afebrile. Seen and examined bedside. Pain is well controlled. Pending PT OT evaluation. Patient lives at home with his and son and also has had home health come to his house before. Considering acute rehab. Overnight afebrile. Pain is well controlled, only with weight bearing, he is able to weight-bear as tolerated with a walker. No chest pain or shortness of breath. Office follow-up with Orthopedic surgery in 10 to 14 days for additional x-rays. Vitals/I&O Vitals/I&O: Vital Signs Date Time Temp Pulse Resp B/P (MAP) Pulse Ox O2 Delivery O2 Flow Rate FiO2 07/05/20 08:11 93 140/71 07/05/20 08:00 Room Air 07/05/20 07:00 97.5 14 97 97.5 I & O 07/04/20 07/04/20 07/05/20 15:00 23:00 07:00 Intake Total 700 ml 240 ml 400 ml Output Total 200 ml Balance 500 ml 240 ml 400 ml Physical Exam General: Alert, Cooperative Heart: Regular rate Lungs: Clear Abdomen: Soft Extremities: Normal pulses, Other (I did careful circumduction of the right hip. This was only minimally painful, consistent with a greater trochanter fracture. Percussion on the heel does not seem to recreate hip pain. Light touch sensation is intact. Length and rotation are normal, with no malalignment or shortening.) Skin: No breakdown, No significant lesion Assessment and Plan Assessmemt and Plan Problems Medical Problems: (1) Hip fracture, right Status: Acute Comment Review of Relevant I have reviewed the following items inessa (where applicable) has been applied. Justifications for Admission Other Justification GARLAND INGRAM MD Jul 05, 2020 10:21
[2020-07-05] MEDS ORDERED: OXYC1TAB22 PO (10:23)
--- NOTE | 2020-07-05 10:27 | SNU/HH DC ---
DISCHARGE WITH HOME HEALTH DISCHARGE INFORMATION: Discharge Date: Jul 05, 2020 Final Diagnosis: Problems Medical Problems: (1) Hip fracture, right Status: Acute Condition on Discharge: Stable CODE STATUS: Code Status: Full HOME HEALTH: Face to Face: I certify this patient is under my care and that I, or a nurse practitioner or physician's workers compensation claims assistant working with me, had a face to face encounter that meets the physician face to face encounter requirements with this patient on 07/05/20. Medical Complications: DJD, Falls, FX RN For Eval/Treatment: Yes Physical Therapy For: Evalulation/Treatment Occupational Therapy For: Evaluation/Treatment Pt Meets Homebound Status: Unsteady balance w/ amb,, Limited distance walking POST DISCHARGE ORDERS: Activity Instructions for Disc: Activity as tolerated, Avoid exertion, Progressive ambulation Weight Bearing Status after Di: Full weight bearing Bathing Instructions: No Tub Bath until see DIET AFTER DISCHARGE: MAICO Wound/Incision Care: Other, see below CHECKS AFTER DISCHARGE: Checks after discharge: Check blood press - daily TREATMENT/EQUIPMENT ORDERS: Adaptive Equipment Issued: Front wheeled walker CERTIFICATION STATEMENT: Certification Statement: Certification Statement: Based on the above finding, I certify that this patient is confined to the home and needs intermittent alf care, physical therapy and/or speech therapy, or continues to need occupational therapy.~ This patient is under my care, and I have initiated the establishment of the plan of care.~ This patient will be followed by myself or a community physician who will periodically review the plan of care. Home Meds Active Scripts Oxycodone/Apap 10-325 (PERCOCET 10-325 MG TABLET ) 1 Each Tablet, 1 TAB PO PRN Q6HRS PRN for SEVERE PAIN 7-10 for 6 Days, #40 TAB Prov:GARLAND INGRAM MD 07/05/20 Diclofenac Sodium (VOLTAREN) 100 Gm Gel..gram., 1 GM TP QID for pain for 30 Days, #1 EACH 0 Refills apply to affected area(s) Prov:SALVADOR JOHNSON APRN 05/30/20 Cyclobenzaprine Hcl (CYCLOBENZAPRINE HCL) 5 Mg Tablet, 1 TAB PO PRN BID PRN for PAIN, #10 TAB Prov:SKY GALLARDO MD 04/08/20 Reported Medications Carvedilol (CARVEDILOL ) 3.125 Mg Tablet, 1 TAB PO BID for heart rate, #60 TAB 3 Refills 05/01/18 Mirtazapine (MIRTAZAPINE) 30 Mg Tablet, 1 TAB PO QHS for antidepressant, #30 TAB 1 Refill 05/01/18 Amlodipine Besylate (AMLODIPINE BESYLATE) 5 Mg Tablet, 5 MG PO DAILY for blood pressure, TAB 05/01/18 Atorvastatin Calcium (ATORVASTATIN CALCIUM) 20 Mg Tablet, 20 MG PO HS for FOR CHOLESTEROL, #30 TAB 0 Refills 12/11/15 Losartan/Hydrochlorothiazide (LOSARTAN-HCTZ 100-25 MG TAB) 1 Each Tablet, 1 TAB PO DAILY, #30 TAB 5 Refills 12/11/15 Clopidogrel Bisulfate (CLOPIDOGREL) 75 Mg Tablet, 1 TAB PO DAILY, #90 TAB 1 Refill 01/14/15 Gabapentin (GABAPENTIN ) 300 Mg Capsule, 1 CAP PO TID, #90 CAP 5 Refills 01/14/15 Clonidine Hcl (CLONIDINE HCL) 0.1 Mg Tablet, 1 TAB PO QHS, #30 TAB 2 Refills 01/14/15 Discontinued Reported Medications Carisoprodol (CARISOPRODOL) 350 Mg Tablet, 1 TAB PO TID for muscle spasm, #90 TAB 05/01/18 Discontinued Scripts Alprazolam (ALPRAZOLAM) 0.5 Mg Tablet, 1 TAB PO PRN BID PRN for ANXIETY / AGITATION, #10 TAB 0 Refills Prov:SKY GALLARDO MD 04/08/20 Hydrocodone/Apap 5-325 (NORCO 5-325 TABLET) 1 Each Tablet, 1-2 EACH PO PRN Q6HRS PRN for PAIN, #15 as needed for pain Prov:FER TRUONG MD 05/30/18 Hydroxyzine Hcl (HYDROXYZINE HCL) 25 Mg Tablet, 1 TAB PO PRN TID PRN for ANXIETY / AGITATION, #15 TAB Prov:SKY GALLARDO MD 07/31/16 Hydrocodone Bit/Acetaminophen (HYDROCODONE-APAP 5-325 ) 1 Each Tablet, 1 TAB PO PRN Q6HRS PRN for PAIN, #15 TAB Be careful as this medication may cause you to be drowsy or tired. Do not drive on this medication. Prov:SKY GALLARDO MD 07/31/16 GARLAND INGRAM MD Jul 05, 2020 10:27
--- NOTE | 2020-07-05 10:29 | PDOC3 ---
Discharge Summary Visit Information Date of Admission: Jul 02, 2020 Date of Discharge: Jul 05, 2020 Admitting Diagnosis: Right hip fracture Final Diagnosis Problems Medical Problems: (1) Hip fracture, right Status: Acute Brief Hospital Course Allergies Allergies Coded Allergies Type Severity Reaction Last Updated Verified No Known Drug Allergies 01/14/15 No Vital Signs Vital Signs Date Time Temp Pulse Resp B/P (MAP) Pulse Ox O2 Delivery O2 Flow Rate FiO2 07/05/20 08:11 93 140/71 07/05/20 08:00 Room Air 07/05/20 07:00 97.5 14 97 97.5 Lab Results Laboratory Tests Test 07/04/20 07:20 25-Hydroxy Vitamin D Total 13.2 ng/mL (30-100) Brief Hospital Course Mr Marquez is a 79-year-old male w/ PMHx PVD, HTN who fell and actually presented to the ER 1 day prior to admit, negative for fracture, but returned to ED c/o severe 10/[address] scan shows a greater trochanter fracture with possible extension to the posterior femoral neck. He has a history of left hip intramedullary nail for hip fracture. Right hand x-rays are showing old fractures of the fourth and fifth metacarpals. 07/03: No acute events overnight. Patient's pain is well controlled. Pending Ortho evaluation. Patient's chart, labs, images were reviewed and discussed with RN 07/04: No acute events overnight. Patient remains afebrile. Seen and examined bedside. Pain is well controlled. Pending PT OT evaluation. Patient lives at home with his and son and also has had home health come to his house before. Considering acute rehab. Overnight afebrile. Pain is well controlled, only with weight bearing, he is able to weight-bear as tolerated with a walker. No chest pain or shortness of breath. Consults: Ortho Plan: Office follow-up with Orthopedic surgery in 10 to 14 days for additional x-rays. Problem list: Acute mechanical fall Bilateral hip osteoarthritis Right greater trochanteric fracture - non-operative management per ortho Sigmoid colon diverticulosis. PVD - s/p left FSA stenting HTN Greater than 30 minutes spent on d/c home with home health Discharge Information Condition at Discharge: Improved Follow Up: Weeks Disposition/Orders: D/C to Home w/ HH Scheduled Amlodipine Besylate (Amlodipine Besylate) 5 Mg Tablet, 5 MG PO DAILY for blood pressure, (Reported) Entered as Reported by: Janeen Oro on 05/01/18 0832 Last Taken: Unknown Dose on Unknown Date & Time Last Action: Continued on 07/02/201901 by LUKASZ CLAUDIO Atorvastatin Calcium (Atorvastatin Calcium) 20 Mg Tablet, 20 MG PO HS for FOR CHOLESTEROL, #30 Ref 0 (Reported) Entered as Reported by: PRITI MADISON on 12/11/15 1706 Last Taken: Unknown Dose on Unknown Date & Time Last Action: Continued on 07/02/201901 by LUKASZ CLAUDIO Carvedilol (Carvedilol ) 3.125 Mg Tablet, 1 TAB PO BID for heart rate, #60 Ref 3 (Reported) Entered as Reported by: Janeen Oro on 05/01/18831 Last Taken: Unknown Dose on Unknown Date & Time Last Action: Continued on 07/02/201901 by LUKASZ CLAUDIO Clonidine Hcl (Clonidine Hcl) 0.1 Mg Tablet, 1 TAB PO QHS, #30 Ref 2 (Reported) Entered as Reported by: LUIS MIGUEL HANNA on 01/14/15 1009 Last Taken: Unknown Dose on Unknown Date & Time Last Action: Continued on 07/02/201901 by LUKASZ CLAUDIO Clopidogrel Bisulfate (Clopidogrel) 75 Mg Tablet, 1 TAB PO DAILY, #90 Ref 1 (Rep orted) Entered as Reported by: LUIS MIGUEL HANNA on 01/14/15 1009 Diclofenac Sodium (Voltaren) 100 Gm Gel..gram., 1 GM TP QID for pain for 30 Days, #1 Ref 0 apply to affected area(s) Prescribed by: Danita Ramirez APRN on 05/30/20 185 Last Taken: Unknown Dose on Unknown Date & Time Last Action: Continued on 07/02/201901 by LUKASZ CLAUDIO Gabapentin (Gabapentin ) 300 Mg Capsule, 1 CAP PO TID, #90 Ref 5 (Reported) Entered as Reported by: LUIS MIGUEL HANNA on 01/14/15 1009 Losartan/Hydrochlorothiazide (Losartan-Hctz 100-25 Mg Tab) 1 Each Tablet, 1 TAB PO DAILY, #30 Ref 5 (Reported) Entered as Reported by: PRITI MADISON on 12/11/15 1706 Last Taken: Unknown Dose on Unknown Date & Time Last Action: Converted on 07/02/201901 by LUKASZ CLAUDIO Mirtazapine (Mirtazapine) 30 Mg Tablet, 1 TAB PO QHS for antidepressant, #30 Ref 1 (Reported) Entered as Reported by: Janeen Oro on 05/01/18 0832 Scheduled PRN Cyclobenzaprine Hcl (Cyclobenzaprine Hcl) 5 Mg Tablet, 1 TAB PO PRN BID PRN for PAIN, #10 Prescribed by: SKY GALLARDO on 04/08/20 1657 Last Taken: Unknown Dose on Unknown Date & Time Last Action: Converted on 07/02/201901 by LUKASZ CLAUDIO Oxycodone/Apap 10-325 (Percocet 10-325 Mg Tablet ) 1 Each Tablet, 1 TAB PO PRN Q6HRS PRN for SEVERE PAIN 7-10 for 6 Days, #40 Prescribed by: GARLAND INGRAM MD on 07/05/20 1024 Discontinued Medications Alprazolam (Alprazolam) 0.5 Mg Tablet, 1 TAB PO PRN BID PRN for ANXIETY / AGITATION, #10 Ref 0 Prescribed by: SKY GALLARDO on 04/08/20 1657 Carisoprodol (Carisoprodol) 350 Mg Tablet, 1 TAB PO TID for muscle spasm, #90 (Reported) Entered as Reported by: Janeen Oro on 05/01/18 0832 Last Taken: Unknown Dose on Unknown Date & Time Last Action: Converted on 07/02/201901 by LUKASZ CLAUDIO Hydrocodone Bit/Acetaminophen (Hydrocodone-Apap 5-325 ) 1 Each Tablet, 1 TAB PO PRN Q6HRS PRN for PAIN, #15 Be careful as this medication may cause you to be drowsy or tired. Do not drive on this medication. Prescribed by: SKY GALLARDO on 07/31/16 1734 Hydrocodone/Apap 5-325 ([place] 5-325 Tablet) 1 Each Tablet, 1-2 EACH PO PRN Q6HRS PRN for PAIN, #15 as needed for pain Prescribed by: FER TRUONG MD on 05/30/18 1440 Hydroxyzine Hcl (Hydroxyzine Hcl) 25 Mg Tablet, 1 TAB PO PRN TID PRN for ANXIETY / AGITATION, #15 Prescribed by: SKY GALLARDO on 07/31/16 1820 Justicifation of Admission Dx: Justifications for Admission: Justification of Admission Dx: N/A GARLAND INGRAM MD Jul 05, 2020 10:28
--- NOTE | 2020-07-05 10:41 | NUR ---
SW following. Discussed with RN, pt from home with , room air, regular diet. PT/OT recommending SNF. SW met with pt, he would prefer to go home with home health - pt reports he already has home health but can't remember the name. SW spoke with Pam at [facility], pt is current with [facility]. RN notified. Pt discharging home today with [facility]. No further SW needs.
--- NOTE | 2020-07-05 14:10 | NUR ---
Discharge Note: LUCILA GONSALEZ Discharge instructions and discharge home medications reviewed with Patient and a copy given. All questions have been answered and understanding verbalized. The following instructions and handouts were given: information about plan of care, medications, weight bearing status, follow up appointments, etc. Discontinued lines and drains: IV line in right AC removed, catheter tip intact. Patient discharged to home with home health with , wheelchair used for mobility to discharge vehicle.
[2020-09-01] MEDS ORDERED: CILO100T PO (06:47)
[2020-09-01] MEDS ORDERED: LORA-434 PO (06:48)
[2020-09-01] MEDS ORDERED: TIZA4TAB2 PO (06:50)
[2020-09-01] MEDS ORDERED: POTA20TA4 PO (06:50)
[2020-09-01] MEDS ORDERED: FURO20TA3 PO (06:50)
[2020-09-03] MEDS ORDERED: DULO20CA PO (08:36)
== END 2020-07-05 14:10 | disposition home health service (06) | DRG 536 ==
LOC: ER 11:33 → 4 NORTH 14:13
PROVIDERS: ADMIT Internal Medicine; ATTEND Internal Medicine
DX: S72.111A Displaced fracture of greater trochanter of right femur, initial encounter for closed fracture (principal); I10 Essential (primary) hypertension; I73.9 Peripheral vascular disease, unspecified; K57.30 Diverticulosis of large intestine without perforation or abscess without bleeding; M16.0 Bilateral primary osteoarthritis of hip; Z96.642 Presence of left artificial hip joint; F32.9 Major depressive disorder, single episode, unspecified; F41.9 Anxiety disorder, unspecified; G62.9 Polyneuropathy, unspecified; G89.29 Other chronic pain; Z90.49 Acquired absence of other specified parts of digestive tract; Z82.49 Family history of ischemic heart disease and other diseases of the circulatory system; Z83.3 Family history of diabetes mellitus; Z20.822 Contact with and (suspected) exposure to COVID-19
CPT/HCPCS: 36415; 73130; 73502; 73700; 80053; 82306; 85025; 87426; 93005; 96374; 99285; J3010; J7030; U0003; 97110-GO; 97110-GP; 97530-GP; G0378